=== PATIENT | male | born 1940 | race Caucasian/White ===

== ENCOUNTER 2018-01-12 17:28 | Observation (INO) | payer MEDICARE ==
[2018-01-11 23:35] VITALS: BP 130/59
[~2018-01-12] VITALS: Ht 175.3 cm; Wt 103.6 kg
[2018-01-12] MEDS: CEFTRIAXONE SOD 1 GM VIAL IV SCH (14:00)
--- OUTSIDE RECORDS SUMMARY | 2018-01-12 17:31 | XMS REPORT | Clinical Summary ---
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 Disp. Refills Start End Date Status Date hydroCHLOROthiazide Take 25 mg by mouth Active (HYDRODIURIL) 25 MG daily. tablet vit B comp Take 1 tablet by mouth Active no.5-avuss-Y-biotin daily. 5000 MCG (NEPHRO-OBBBI RX) 1-60-300 mg-mg-mcg tablet digOXIN (LANOXIN) 125 mcg Take 125 mcg by mouth Active tablet daily. tamsulosin (FLOMAX) 0.4 Take 0.4 mg by mouth Active mg capsule,extended daily. release 24hr aspirin (ECOTRIN) 81 MG Take 81 mg by mouth Active enteric coated tablet daily. folic acid (FOLVITE) 400 Take 400 mcg by mouth Active MCG tablet daily. metoprolol tartrate Take 12.5 mg by mouth Active (LOPRESSOR) 25 mg tablet daily. cholecalciferol, vitamin Take 2,000 Units by mouth Active D3, (VITAMIN D3) 2,000 daily. unit capsule capsule atorvastatin (LIPITOR) 10 Take 10 mg by mouth Active MG tablet daily. allopurinol (ZYLOPRIM) Take 300 mg by mouth Active 300 MG tablet daily. irbesartan (AVAPRO) 300 Take 300 mg by mouth Active MG tablet daily. nystatin (MYCOSTATIN) Take 100,000 Units by Active 100,000 unit/mL mouth. Swish in mouth suspension prednisoLONE sodium Administer 1 drop to both Active phosphate 1 % ophthalmic eyes 2 (two) times a day. solution cetirizine (ZyrTEC) 5 MG Take 5 mg by mouth daily. Active tablet cefTRIAXone (ROCEPHIN) 1 Infuse 1 g into a venous 01/14/20 02/13/20 Active gram in 50 mL Add-Montverde catheter daily for 30 18 18 days. sodium chloride 0.9% Infuse 50 mL/hr into a 100 mL 01/13/20 02/12/20 Active solution venous catheter 18 18 continuously for 30 days. warfarin (COUMADIN) 5 MG Take 5 mg by mouth daily. 01/13/20 Discontin tablet Take 1 tablet (5mg) by 18 ued mouth daily for 30 days. 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) after 01/11/2017 Social History Tobacco Use Types Packs/Day Years Used Date Former Smoker Quit: 01/22/1970 Smokeless Tobacco: Never Used Alcohol Use Drinks/Week oz/Week Comments No Sex Assigned at Date Recorded Not on file Last Filed Vital Signs Vital Sign Reading Time Taken Blood Pressure 113/65 01/12/2018 3:00 PM CDT Pulse 62 01/12/2018 3:00 PM CDT Temperature 36.3 C (97.3 F) 01/12/2018 3:00 PM CDT Respiratory Rate 18 01/12/2018 3:00 PM CDT Oxygen Saturation 95% 01/12/2018 3:00 PM CDT Inhaled Oxygen - - Concentration Weight 103 kg (226 lb) 01/12/2018 5:00 AM CDT Height 175.3 cm (5' 9") 01/12/2018 5:00 AM CDT Body Mass Index 33.37 01/12/2018 5:00 AM CDT Plan of Treatment Not on file Results * Urinalysis screen and microscopy, with reflex to culture (01/12/2018 12:31 PM) Component Value Ref Range Specimen site Clean catch Color, UA Red Appearance, UA Clear Specific gravity, UA 1.004 1.001 - 1.035 pH, UA 6.0 5.0 - 8.5 Protein, UA Negative Negative Glucose, UA Negative Negative Ketones, UA Negative Negative Bilirubin, UA Negative Negative Blood, UA Large (A) Negative Nitrite, UA Negative Negative Urobilinogen, UA Negative <2.0 Leukocyte esterase, UA Negative Negative WBC, UA 54 (H) 0 - 1 /HPF RBC, UA >200 (H) 0 - 5 /HPF Bacteria, UA None seen None seen Yeast, UA None seen Yeast with pseudohyphae, None seen UA Specimen Performing Laboratory Urine [facility] [address] [place] [address] * Smear review (01/12/2018 7:07 AM) Component Value Ref Range Platelet slide review Kacey adequate Specimen Performing Laboratory [facility] [address] [place] [address] * Estimated GFR (01/12/2018 7:07 AM) Component Value Ref Range GFR Non Af Amer 45 (A) mL/min/1.73 m2 GFR Af Amer 55 (A) mL/min/1.73 m2 Comment: Chronic kidney disease: <60 mL/min/1.73m2 Kidney failure: <15 mL/min/1.73m2 The estimated GFR is calculated from the IDMS-traceable Modification of Diet in Renal Disease Equation. The accuracy of the calculation is poor when the creatinine is normal. Calculated values >90 mL/min/1.73m2 are not reported. This equation has not been validated in children (<18 years), women, the elderly (>70 years), or ethnic groups other than Caucasians and Americans. Specimen Performing Laboratory Plasma specimen [facility] [address] [place] [address] * Prothrombin time with INR (01/12/2018 7:07 AM) Component Value Ref Range Prothrombin time 15.3 (H) 12.0 - 15.0 sec INR 1.19 (H) 0.92 - 1.12 Comment: For patients on anticoagulant therapy, reference ranges below: Indication: INR Value Treatment of Venous Thrombosis, 2.0-3.0 pulmonary emboli, or prophylaxis of a venous thrombosis, or systemic emboli. High dose, high risk patients 3.0-4.5 with mechanical valves. NOTE: INR values over 3.0 are sometimes associated with gastrointestinal hemorrhage, especially values over 4.0. Specimen Performing Laboratory Blood [facility] [address] [place] [address] * CBC with platelet and differential (01/12/2018 7:07 AM) Component Value Ref Range WBC 14.7 (H) 4.2 - 11.0 k/uL RBC 3.16 (L) 4.04 - 5.86 m/uL HGB 10.1 (L) 13.0 - 17.3 g/dL HCT 31.5 (L) 34.0 - 45.0 % MCV 99.7 (H) 80.0 - 98.0 fL MCH 32.0 27.0 - 34.0 pg MCHC 32.1 31.5 - 36.5 g/dL RDW - SD 58.7 (H) 37.0 - 51.0 fL MPV 12.2 (H) 7.4 - 10.4 fL Platelet count 138 (L) 150 - 400 k/uL Nucleated RBC 0.30 /100 WBC Neutrophils 76.1 (H) 36.0 - 66.0 % Lymphocytes 13.3 (L) 24.0 - 44.0 % Monocytes 8.7 (H) 0.0 - 6.0 % Eosinophils 0.6 0.0 - 6.0 % Basophils 0.3 0.0 - 1.2 % Immature granulocytes 0.8 0.0 - 1.0 % Specimen Performing Laboratory Blood [facility] [address] [place] [address] * Basic metabolic panel (01/12/2018 7:07 AM) Component Value Ref Range Sodium 139 135 - 150 mEq/L Potassium 4.6 3.5 - 5.0 mEq/L Chloride 106 100 - 109 mEq/L CO2 24 24 - 32 mmol/L Anion gap 9 7 - 15 mEq/L Comment: Starting from December , anion gap calculation no longer incorporates potassium. Please note the change. BUN 38 (H) 7 - 18 mg/dL Creatinine 1.5 0.8 - 1.5 mg/dL Glucose 94 65 - 100 mg/dL Calcium 8.0 (L) 8.6 - 10.7 mg/dL Specimen Performing Laboratory Plasma specimen [facility] [address] [place] [address] after 01/11/2017 Insurance Payer Benefit Subscriber ID Type Phone Address Plan / Group [employer] CIGNA xxxxxxxxxxx HMO [employer] [place] [address]
[2018-01-12 17:32] VITALS: BP 151/65
[2018-01-12 18:13] VITALS: BP 151/65
[2018-01-12] MEDS ORDERED: ACETAMINOPHEN/CODEINE 300MG - 30MG TAB PO PRN (19:45)
[2018-01-12 20:00] VITALS: BP 136/63
[2018-01-12] MEDS ORDERED: DEXTROSE 5%/0.45% SOD CHL 1,000 ML IV SCH (20:00)
[2018-01-12] MEDS: DEXTROSE 5%/0.45% SOD CHL 1,000 ML IV SCH (21:03)
[2018-01-13 04:25] VITALS: BP 133/62
[2018-01-13 07:51] VITALS: BP 134/61
[2018-01-13] MEDS ORDERED: KETOROLAC TROMETHAMINE 0.5% OP SOLN 3 ML BTL OP PRN (10:00)
[2018-01-13] MEDS: DEXTROSE 5%/0.45% SOD CHL 1,000 ML IV SCH ×2 (10:33→23:38)
[2018-01-13 10:34] LABS: BASOPHILS # (AUTO) 0.1 (0.0-0.1); BASOPHILS % 0.7 % (0.0-1.0); EOSINOPHILS # (AUTO) 0.4 (0.0-0.4); EOSINOPHILS % 2.9 % (0.0-6.0); HEMATOCRIT 32.6 % (38.2-49.6); HEMOGLOBIN 10.7 g/dL (14.0-18.0); LYMPHOCYTES # (AUTO) 2.7 (1.0-3.2); LYMPHOCYTES % 20.1 % (18.0-39.1); MEAN CORPUSCULAR HEMOGLOBIN 32.2 pg (28-32); MEAN CORPUSCULAR HGB CONC 32.8 g/dL (31-35); MEAN CORPUSCULAR VOLUME 98.2 fL (81-99); MONOCYTES % 7.7 % (4.4-11.3); NEUTROPHILS % 67.5 % (38.7-80.0); PLATELET COUNT 168 x10e3/uL (140-360); RED BLOOD COUNT 3.32 x10e6/uL (4.3-5.7); RED CELL DISTRIBUTION WIDTH 16.4 % (11.7-14.4)
[2018-01-13 12:00] VITALS: BP 125/57
[2018-01-13] MEDS: CEFTRIAXONE SOD 1 GM VIAL IV SCH (13:10)
[2018-01-13 15:59] VITALS: BP 136/63
[2018-01-13] MEDS: PREDNISOLONE ACETATE 1% OPTH SUSP 5 ML BTL OP SCH (17:00)
[2018-01-13 20:00] VITALS: BP 147/65
[2018-01-13] MEDS ORDERED: TAMSULOSIN HCL 0.4 MG CAP PO SCH (21:00)
[2018-01-13] MEDS ORDERED: ATORVASTATIN 10 MG TAB PO SCH (21:00)
[2018-01-13] MEDS ORDERED: METOPROLOL TARTRATE 25 MG TAB PO SCH (21:00)
[2018-01-13 23:46] VITALS: BP 147/65
[2018-01-14] VITALS: BP 140/65
[2018-01-14 04:00] VITALS: BP 149/69
[2018-01-14 07:21] LABS: BASOPHILS # (AUTO) 0.1 (0.0-0.1); BASOPHILS % 0.6 % (0.0-1.0); EOSINOPHILS # (AUTO) 0.3 (0.0-0.4); EOSINOPHILS % 3.1 % (0.0-6.0); HEMOGLOBIN 9.9 g/dL (14.0-18.0); LYMPHOCYTES # (AUTO) 2.1 (1.0-3.2); LYMPHOCYTES % 18.5 % (18.0-39.1); MEAN CORPUSCULAR HEMOGLOBIN 32.6 pg (28-32); MEAN CORPUSCULAR HGB CONC 34.1 g/dL (31-35); MEAN CORPUSCULAR VOLUME 95.4 fL (81-99); MONOCYTES # (AUTO) 0.8 (0.2-0.8); MONOCYTES % 6.9 % (4.4-11.3); NEUTROPHILS # (AUTO) 7.7 (2.1-6.9); NEUTROPHILS % 69.6 % (38.7-80.0); PLATELET COUNT 152 x10e3/uL (140-360); RED BLOOD COUNT 3.04 x10e6/uL (4.3-5.7); RED CELL DISTRIBUTION WIDTH 16.3 % (11.7-14.4)
[2018-01-14 07:52] LABS: ANION GAP 11.2 mmol/L (8-16); CALCIUM 8.8 mg/dL (8.4-10.2); CREATININE, SERUM 1.21 mg/dL (0.72-1.25); MAGNESIUM 1.3 MG/DL (1.3-2.1); POTASSIUM 4.2 mmol/L (3.5-5.1)
[2018-01-14 08:00] VITALS: BP 172/77
[2018-01-14 08:30] VITALS: BP 172/77
[2018-01-14] MEDS: PREDNISOLONE ACETATE 1% OPTH SUSP 5 ML BTL OP SCH (09:00)
[2018-01-14] MEDS ORDERED: ALLOPURINOL 300 MG TAB PO SCH (09:00)
[2018-01-14] MEDS ORDERED: LORATADINE 10 MG TAB PO SCH (09:00)
[2018-01-14] MEDS ORDERED: DIGOXIN 0.125 MG TAB PO SCH (09:00)
[2018-01-14] MEDS ORDERED: IRBESARTAN 150 MG TAB PO SCH (09:00)
[2018-01-14] MEDS ORDERED: DOCUSATE SODIUM 100 MG CAP PO SCH (09:00)
[2018-01-14] MEDS ORDERED: HYDROCHLOROTHIAZIDE 25 MG TAB PO SCH (09:00)
[2018-01-14] MEDS ORDERED: FOLIC ACID 1 MG TAB PO SCH (09:00)
[2018-01-14] MEDS ORDERED: CHOLECALCIFEROL 1,000 UNIT TAB PO SCH (09:00)
[2018-01-14 12:00] VITALS: BP 129/60
[2018-01-14] MEDS: CEFTRIAXONE SOD 1 GM VIAL IV SCH (13:06)
[2018-01-14] MEDS: DEXTROSE 5%/0.45% SOD CHL 1,000 ML IV SCH (13:06)
[2018-01-14] MEDS ORDERED: TAMSULOSIN HCL 0.4 MG CAP PO SCH (21:00)
== END 2018-01-14 14:44 | disposition home or self-care (01) ==
LOC: INTOOBSV 17:28 → MED/SURG3 17:28
PROVIDERS: ADMIT Urology; ATTEND Urology
DX: N99.820 Postprocedural hemorrhage of a genitourinary system organ or structure following a genitourinary system procedure (principal); R31.9 Hematuria, unspecified; C67.9 Malignant neoplasm of bladder, unspecified; D72.829 Elevated white blood cell count, unspecified; I10 Essential (primary) hypertension; N40.0 Benign prostatic hyperplasia without lower urinary tract symptoms; E78.5 Hyperlipidemia, unspecified; I48.91 Unspecified atrial fibrillation; Z79.01 Long term (current) use of anticoagulants; I25.10 Atherosclerotic heart disease of native coronary artery without angina pectoris; Z95.1 Presence of aortocoronary bypass graft
CPT/HCPCS: 36415 ×2; 80048; 83735; 85025 ×2; 96361; G0378 ×3; J0696 ×2

== ENCOUNTER 2018-04-18 06:41 | Observation (INO) | payer MEDICARE ==
[2018-04-17 10:53] LABS: BASOPHILS # (AUTO) 0.1 (0.0-0.1); BASOPHILS % 0.7 % (0.0-1.0); EOSINOPHILS # (AUTO) 0.2 (0.0-0.4); EOSINOPHILS % 2.4 % (0.0-6.0); LYMPHOCYTES # (AUTO) 2.5 (1.0-3.2); LYMPHOCYTES % 25.5 % (18.0-39.1); MEAN CORPUSCULAR HEMOGLOBIN 27.2 pg (28-32); MEAN CORPUSCULAR HGB CONC 31.4 g/dL (31-35); MEAN CORPUSCULAR VOLUME 86.4 fL (81-99); MONOCYTES # (AUTO) 0.8 (0.2-0.8); MONOCYTES % 8.6 % (4.4-11.3); NEUTROPHILS # (AUTO) 6.1 (2.1-6.9); NEUTROPHILS % 62.1 % (38.7-80.0); PLATELET COUNT 214 x10e3/uL (140-360); RED BLOOD COUNT 4.05 x10e6/uL (4.3-5.7)
--- NOTE | 2018-04-17 11:05 | Diagnostic Imaging Report ---
PROCEDURE: Frontal and lateral views of the chest. COMPARISON: None. INDICATIONS: PREOPERATIVE CHEST XRAY FOR BLADDER SURGERY FINDINGS: Lines/tubes: None. Lungs: The lungs are well inflated and clear. There is no evidence of pneumonia or pulmonary edema. Pleura: There is no pleural effusion or pneumothorax. Heart and mediastinum: Mild cardiomegaly. Status post CABG. Aortic and coronary atherosclerotic calcifications. Bones: No acute bony abnormality. Status post median sternotomy. IMPRESSION: Mild cardiomegaly and post surgical changes without evidence of pulmonary edema. Clear lungs. Dictated by: LUCIANO BLANCAS M.D. on 04/17/2018 at 11:11 Electronically approved by: LUCIANO BLANCAS M.D. on 04/17/2018 at 11:11
[2018-04-17 11:08] LABS: ANION GAP 14.7 mmol/L (8-16); CALCIUM 9.6 mg/dL (8.4-10.2); CREATININE, SERUM 1.55 mg/dL (0.72-1.25); POTASSIUM 4.7 mmol/L (3.5-5.1)
[~2018-04-18] VITALS: Ht 175.3 cm; Wt 101.6 kg
[2018-04-18] VITALS (7 sets, daily range): BP systolic 131–155; BP diastolic 56–65
[~2018-04-18 06:41] MED LIST: ALLOPURINOL300 MG PO; ASPIR 8181 MG PO; ATORVASTATIN CA10 MG PO; BIOTIN2500 MCG PO; DIGOXIN125 MCG PO; FLOMAX0.4 MG PO; FOLIC ACID1 MG PO; HYDROCHLOROTHIA25 MG PO; IRBESARTAN150 MG PO; METOPROLOL TART25 MG PO; NYSTATIN100000 UNI; TRIAMCINOLONE A15 G4 TP; TURMERIC PO; VIT D3 PO; WARFARIN SODIU2.5 MG PO; WARFARIN SODIUM1 MG PO; ZYRTEC10 M3 PO
[2018-04-18] MEDS ORDERED: CEFTRIAXONE SOD 1 GM VIAL ONE (07:32)
[2018-04-18 08:06] LABS: INR 1.25; PARTIAL THROMBOPLASTIN TIME 28.1 seconds (23.8-35.5); PROTHROMBIN TIME 14.8 seconds (11.9-14.5)
[2018-04-18] MEDS ORDERED: ACETAMINOPHEN/CODEINE 300MG - 30MG TAB PO PRN (10:15)
[2018-04-18] MEDS ORDERED: WARFARIN SOD 1 MG TAB PO SCH (10:45)
[2018-04-18] MEDS ORDERED: TRIAMCINOLONE ACETONIDE 15 GM TP SCH (10:45)
[2018-04-18] MEDS ORDERED: DEXTROSE 5%/0.45% SOD CHL 1,000 ML IV ONE (11:00)
[2018-04-18] MEDS: TRIMETHOPRIM/SULFAMETHOXAZOLE 160-800 MG TAB PO SCH ×2 (11:15→20:34)
[2018-04-18] MEDS ORDERED: TRIAMCINOLONE 0.025% TP PRN (11:30)
[2018-04-18] MEDS ORDERED: FENTANYL CITRATE/PF 100MCG/2 ML INJ ONE (15:00)
[2018-04-18] MEDS: TURMERIC 400 MG PO SCH (16:23)
[2018-04-18] MEDS ORDERED: WARFARIN SOD 5 MG TAB PO SCH (17:00)
[2018-04-18] MEDS ORDERED: SEVOFLURANE INHAL SOLN 250 ML PEN BTL ONE (17:55)
[2018-04-18] MEDS ORDERED: DEXAMETHASONE SOD PHOS INJ 4 MG/ML VIAL ONE (17:55)
[2018-04-18] MEDS ORDERED: EPHEDRINE SULFATE INJ 50 MG/10 ML SYR ONE (17:55)
[2018-04-18] MEDS ORDERED: PROPOFOL IV EMULSION 10 MG/ML 20 ML VIAL ONE (17:55)
[2018-04-18] MEDS ORDERED: LIDOCAINE HCL 2% LOCAL INJ 5 ML SDV VIAL INJ ONE (17:55)
[2018-04-18] MEDS ORDERED: ONDANSETRON HCL INJ 2 MG/ML VIAL ONE (17:55)
[2018-04-18] MEDS ORDERED: GLYCOPYRROLATE INJ 1MG/ 5 ML SYR ONE (17:55)
[2018-04-18] MEDS ORDERED: CHOLECALCIFEROL 2000 MG PO SCH (21:00)
[2018-04-18] MEDS ORDERED: ATORVASTATIN 10 MG TAB PO SCH (21:00)
[2018-04-18] MEDS ORDERED: METOPROLOL TARTRATE 25 MG TAB PO SCH (21:00)
[2018-04-18] MEDS ORDERED: CHOLECALCIFEROL 1,000 UNIT TAB PO SCH (21:00)
[2018-04-19 05:05] VITALS: BP 121/58
[2018-04-19 08:13] VITALS: BP 158/70
[2018-04-19] MEDS ORDERED: BIOTIN PO SCH (09:00)
[2018-04-19] MEDS ORDERED: LORATADINE 10 MG TAB PO SCH (09:00)
[2018-04-19] MEDS ORDERED: WARFARIN SOD 2.5 MG TAB PO SCH (09:00)
[2018-04-19] MEDS ORDERED: TAMSULOSIN HCL 0.4 MG CAP PO SCH (09:00)
[2018-04-19] MEDS ORDERED: ASPIRIN 81 MG CHEW TAB PO SCH (09:00)
[2018-04-19] MEDS ORDERED: DIGOXIN 0.125 MG TAB PO SCH (09:00)
[2018-04-19] MEDS ORDERED: ALLOPURINOL 300 MG TAB PO SCH (09:00)
[2018-04-19] MEDS ORDERED: HYDROCHLOROTHIAZIDE 25 MG TAB PO SCH (09:00)
[2018-04-19] MEDS ORDERED: FOLIC ACID 1 MG TAB PO SCH (09:00)
[2018-04-19] MEDS ORDERED: IRBESARTAN 150 MG TAB PO SCH (09:00)
[2018-04-19 09:03] VITALS: BP 158/70
[2018-04-19] MEDS: TRIMETHOPRIM/SULFAMETHOXAZOLE 160-800 MG TAB PO SCH (09:54)
[2018-04-19] MEDS: TURMERIC 400 MG PO SCH (09:54)
--- NOTE | 2018-04-19 14:27 | Operative Report ---
DATE OF PROCEDURE: April 18, 2018 PREOPERATIVE DIAGNOSIS: Recurrent transitional cell carcinoma of the bladder. POSTOPERATIVE DIAGNOSIS: Recurrent transitional cell carcinoma of the bladder. OPERATIVE PROCEDURES PERFORMED 1. Cholecystostomy. 2. Transurethral resection of multiple bladder tumors. ANESTHESIA: General aesthesia. ESTIMATED BLOOD LOSS: Minimal. INDICATIONS: Mr. Paolo Aggarwal is a 77-year-old gentleman with a long history of recurrent TCC of the bladder. He now presents for definitive surgical management of this problem. PROCEDURE IN DETAIL: Patient brought into the operating room, placed in supine position. After initiation of general anesthesia, he was placed in the dorsal lithotomy position and prepped and draped in the usual sterile fashion. Cystourethroscopy was performed using a 21-Uzbek cystoscope. The anterior and posterior urethra were noted to be normal. The prostate revealed evidence of trilobar hyperplasia with moderate elevation of the median bar, but a short prostatic fossa. The bladder was entered without difficulty. Upon entrance into the bladder, the ureteral orifices were in their normal anatomical position. The left ureteral orifice was completely clear. The right ureteral orifice had what appeared to be transitional cell papillary TCC lesions around it. These were all also fulgurated with the Bugbee electrode. The bladder mucosa was studded with small papillary lesions. Most of them appeared to be low-grade and noninvasive. Most of these were plucked off using the cold cup bladder biopsy forceps. The residual tumors were fulgurated using the Bugbee electrode. All of the bladder tumors were removed and irrigated free and sent to pathology for microscopic analysis. There were no grossly visualized tumors noted at the conclusion of the case. The bladder was then drained in its entirety and the cystoscope and the sheath were removed. The patient was returned to supine position and anesthesia was reversed. He was transferred to a bed and taken to the postanesthesia care unit in good condition. Of note, the needle and instrument count were correct at the conclusion of the case. Job#: [id number] NOEL
[2018-04-24] MEDS ORDERED: WARFARIN SOD 1 MG TAB PO SCH (17:00)
== END 2018-04-19 10:27 | disposition home or self-care (01) ==
LOC: OR 06:41 → PACU V 09:56 → IMCU 10:30
PROVIDERS: ADMIT Urology; ATTEND Urology
DX: C67.6 Malignant neoplasm of ureteric orifice (principal); I10 Essential (primary) hypertension; I25.10 Atherosclerotic heart disease of native coronary artery without angina pectoris; I48.91 Unspecified atrial fibrillation; K57.90 Diverticulosis of intestine, part unspecified, without perforation or abscess without bleeding
CPT/HCPCS: 36415 ×2; 52234; 71046; 80048; 85025; 85610; 85730; 88305; 93005; G0378 ×2; J0696; J1100; J2001; J2405; J3490

== ENCOUNTER 2019-04-10 06:37 | Inpatient (IN) | payer MEDICARE ==
[2019-04-08 14:36] LABS: BASOPHILS % 0.4 % (0.0-1.0); EOSINOPHILS # (AUTO) 0.1 (0.0-0.4); HEMATOCRIT 38.5 % (38.2-49.6); HEMOGLOBIN 12.6 g/dL (14.0-18.0); LYMPHOCYTES # (AUTO) 1.6 (1.0-3.2); LYMPHOCYTES % 17.3 % (18.0-39.1); MEAN CORPUSCULAR HEMOGLOBIN 31.3 pg (28-32); MEAN CORPUSCULAR HGB CONC 32.7 g/dL (31-35); MEAN CORPUSCULAR VOLUME 95.5 fL (81-99); MONOCYTES # (AUTO) 0.7 (0.2-0.8); MONOCYTES % 7.5 % (4.4-11.3); NEUTROPHILS # (AUTO) 6.9 (2.1-6.9); NEUTROPHILS % 73.2 % (38.7-80.0); PLATELET COUNT 165 x10e3/uL (140-360); RED BLOOD COUNT 4.03 x10e6/uL (4.3-5.7); RED CELL DISTRIBUTION WIDTH 22.7 % (11.7-14.4)
[2019-04-08 14:51] LABS: CALCIUM 9.9 mg/dL (8.4-10.2); CREATININE, SERUM 1.48 mg/dL (0.72-1.25)
--- NOTE | 2019-04-08 15:24 | Diagnostic Imaging Report ---
EXAMINATION: CHEST 2 VIEWS INDICATION: Pre-operative COMPARISON: Chest radiograph 04/17/2018 FINDINGS: LINES/TUBES:Sternotomy wires intact. LUNGS:The lungs are well-inflated. No focal consolidation or pulmonary edema. PLEURA:No pleural effusion or pneumothorax. MEDIASTINUM:Postoperative changes status post CABG. Atherosclerotic calcifications of the thoracic aorta. BONES/SOFT TISSUES:No acute osseous injury. Mild degenerative changes of the thoracic spine. ABDOMEN:No free air under the diaphragm. IMPRESSION: No focal pneumonia or pulmonary edema. Signed by: Dejuan Tracey MD on 04/08/2019 3:21 PM
[2019-04-08 18:26] LABS: ANISOCYTOSIS SLIG; HOWELL-JOLLY BODIES FEW; HYPOCHROMASIA SLIGHT; PLATELET ESTIMATE ADEQUATE; PLATELET MORPHOLOGY COMMENT FEW LARGE; POIKILOCYTOSIS SLIG; RBC MORPHOLOGY COMMENT NORMAL
[2019-04-10] VITALS (10 sets, daily range): BP systolic 81–122; BP diastolic 33–51
[~2019-04-10] VITALS: Ht 175.3 cm; Wt 86.4 kg
[~2019-04-10 06:37] MED LIST changes: +OLMESARTAN
--- OUTSIDE RECORDS SUMMARY | 2019-04-10 06:43 | XMS REPORT | Clinical Summary ---
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 tablet Active vit B comp Take 1 tablet 0 no.3-imbcu-N-biotin by mouth (NEPHRO-BOBBI RX) 1-60-300 daily. 5000 mg-mg-mcg tablet MCG Active digOXIN (LANOXIN) 125 mcg Take 125 mcg 0 tablet by mouth daily. Active tamsulosin (FLOMAX) 0.4 Take 0.4 mg 0 mg capsule,extended by mouth release 24hr daily. Active aspirin (ECOTRIN) 81 MG Take 81 mg by 0 enteric coated tablet mouth daily. Active folic acid (FOLVITE) 400 Take 400 mcg 0 MCG tablet by mouth daily. Active metoprolol tartrate Take 12.5 mg 0 (LOPRESSOR) 25 mg tablet by mouth daily. Active cholecalciferol, vitamin Take 2,000 0 D3, (VITAMIN D3) 2,000 Units by unit capsule capsule mouth daily. Active atorvastatin (LIPITOR) 10 Take 10 mg by 0 MG tablet mouth daily. Active allopurinol (ZYLOPRIM) Take 300 mg 0 300 MG tablet by mouth daily. Active irbesartan (AVAPRO) 300 Take 300 mg 0 MG tablet by mouth daily. Active nystatin (MYCOSTATIN) Take 100,000 0 100,000 unit/mL Units by suspension mouth. Swish in mouth Active prednisoLONE sodium Administer 1 0 phosphate 1 % ophthalmic drop to both solution eyes 2 (two) times a day. Active cetirizine (ZyrTEC) 5 MG Take 5 mg by 0 tablet mouth daily. Active Problems Problem Noted Date Hematuria 01/12/2018 Social History Date Tobacco Use Types Packs/Day Years Used Quit: 01/22/1970 Former Smoker Smokeless Tobacco: Never Used Alcohol Use Drinks/Week oz/Week Comments No Sex Assigned at Date Recorded Not on file Industry Job Start Date Occupation Not on file Not on file Not on file Travel End Travel History Travel Start No recent travel history available. Last Filed Vital Signs Not on file Plan of Treatment Not on file Results Not on fileafter 04/09/2018 Insurance Type Payer Benefit Subscriber ID Effective Phone Address Plan / Dates Group HMO [employer]SPRING CIGNA xxxxxxxxxxx 2017-P [facility] Advance Directives Patient has advance care planning documents on file. For more information, pooja whiteside contact: Mike Branham [address] [place] [address]
[2019-04-10] MEDS ORDERED: CEFTRIAXONE SOD 1 GM/NS 50 ML 50 ML IV ONE (07:25)
[2019-04-10] MEDS ORDERED: IOPAMIDOL 610MG/1ML 300 MG/ML VIAL IV ONE (08:24)
[2019-04-10 08:29] LABS: INR 0.97; PROTHROMBIN TIME 13.4 seconds (11.9-14.5)
[2019-04-10 08:30] LABS: PARTIAL THROMBOPLASTIN TIME 32.5 seconds (23.8-35.5)
--- OUTSIDE RECORDS SUMMARY | 2019-04-10 10:55 | XMS REPORT | Clinical Summary ---
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 tablet Active vit B comp Take 1 tablet 0 no.1-ugruv-N-biotin by mouth (NEPHRO-BOBBI RX) 1-60-300 daily. 5000 [...] [employer] CIGNA xxxxxxxxxxx 2017-P [facility] Advance Directives Patient has advance care planning documents on file. For more information, pooja whiteside contact: Mike Branham [address] [place] [address]
--- NOTE | 2019-04-10 12:37 | NUR ---
Patient admitted to unit from PACU. Patient is post op TURBT. Patient has a sanchez with CBI in place. Urine noted to be very bright hematuria with some clots noted. Lung tolbert clear to auscultation. Bowel sounds hypoactive. Patient had a BM 2 days ago. No edema noted. Bilateral SCD's in place. Patient has a hx of Afib and stopped his coumadin 4 weeks ago. Left hand 20G IV in place. No c/o pain at this time.
[2019-04-10] MEDS: DEXTROSE 5%/0.45% SOD CHL 1,000 ML IV SCH ×3 (13:00→22:00)
[2019-04-10] MEDS ORDERED: ACETAMINOPHEN/CODEINE 300MG - 30MG TAB PO PRN (13:00)
--- NOTE | 2019-04-10 13:40 | NUR ---
Manual irrigation performed at this time due to increased amount of blood clots. Patient informed he feels better and urine flowing in gravity bag
--- NOTE | 2019-04-10 13:50 | NUR ---
Nurse went to check on patient and patient c/o being dizzy and blurred vision. BP checked and noted at 59/37, 62. Patient placed in trendelenburg and increased fluids at this time.
--- NOTE | 2019-04-10 14:00 | NUR ---
Blood pressure rechecked and noted at 74/37, 60. Patient remains in trendelenburg. Patient states his vision is getting better. Family remains at bedside
--- NOTE | 2019-04-10 14:05 | NUR ---
BP rechecked and 85/43, 59. Call placed to Dr. Navarro to inform of change of condition. MD stated "This is his 16th surgery and he usually has a dramatic event like this and has to go to ICU. He will bounce back." Informed MD that his BP was increasing and that I felt comfortable taking care of him at this time. WIll continue to monitor and will let dr. navarro know about how he is doing
[2019-04-10 14:29] LABS: BASOPHILS % 0.3 % (0.0-1.0); EOSINOPHILS % 0.1 % (0.0-6.0); HEMATOCRIT 31.2 % (38.2-49.6); HEMOGLOBIN 10.1 g/dL (14.0-18.0); LYMPHOCYTES # (AUTO) 0.8 (1.0-3.2); LYMPHOCYTES % 6.7 % (18.0-39.1); MEAN CORPUSCULAR HEMOGLOBIN 31.5 pg (28-32); MEAN CORPUSCULAR HGB CONC 32.4 g/dL (31-35); MEAN CORPUSCULAR VOLUME 97.2 fL (81-99); MONOCYTES # (AUTO) 0.3 (0.2-0.8); MONOCYTES % 2.2 % (4.4-11.3); NEUTROPHILS # (AUTO) 10.3 (2.1-6.9); PLATELET COUNT 163 x10e3/uL (140-360); RED BLOOD COUNT 3.21 x10e6/uL (4.3-5.7); RED CELL DISTRIBUTION WIDTH 22.2 % (11.7-14.4)
--- NOTE | 2019-04-10 15:07 | NUR ---
BP noted at 98/45. Patient able to sit up and tolerate his liquids without feeling dizzy. Nurse house manager in room at this time.
[2019-04-10] MEDS: TRIMETHOPRIM/SULFAMETHOXAZOLE 160-800 MG TAB PO SCH ×2 (15:14→22:00)
--- NOTE | 2019-04-10 15:15 | NUR ---
Blood pressure noted at 51/42 after sitting up taking medications. Patient lowered back down to trendelenburg.
--- NOTE | 2019-04-10 15:41 | NUR ---
Blood pressure noted at 89/57, 80, 100% on O2
--- NOTE | 2019-04-10 15:58 | NUR ---
Vitals noted at 92/48. Patient continues to remain dizzy when sat up. Patient placed back in trendelenburg.
[2019-04-10] MEDS ORDERED: ONDANSETRON HCL INJ 2MG/ML 2ML 2 MG/ML VIAL ONE (17:36)
[2019-04-10] MEDS ORDERED: PROPOFOL IV EMULSION 10 MG/ML 20 ML VIAL ONE (17:36)
[2019-04-10] MEDS ORDERED: NEOSTIGMINE 5 MG/5ML SYR ONE (17:36)
[2019-04-10] MEDS ORDERED: SEVOFLURANE INHAL SOLN 250 ML PEN BTL ONE (17:36)
[2019-04-10] MEDS ORDERED: LIDOCAINE HCL 2% LOCAL INJ 5 ML SDV VIAL INJ ONE (17:36)
[2019-04-10] MEDS ORDERED: GLYCOPYRROLATE INJ 1MG/ 5 ML SYR ONE (17:36)
[2019-04-10] MEDS ORDERED: EPHEDRINE SULFATE INJ 50 MG/10 ML SYR ONE (17:36)
[2019-04-10] MEDS ORDERED: DEXAMETHASONE SOD PHOS INJ 4 MG/ML VIAL ONE (17:36)
[2019-04-10] MEDS ORDERED: ROCURONIUM BROMIDE 10 MG/ML 5ML VIAL ONE (17:36)
--- NOTE | 2019-04-10 18:37 | NUR ---
Call and left a message with dr. navarro and informed that patient would be transferring to icu
[2019-04-10] MEDS ORDERED: FENTANYL CITRATE/PF 100MCG/2 ML INJ ONE (18:57)
--- NOTE | 2019-04-10 19:14 | NUR ---
Report given to Fercho Plascencia in ICU. Patient transferred at this time in bed. Dr. Short returned call and aware
[2019-04-10 19:38] LABS: BASOPHILS % 0.1 % (0.0-1.0); HEMATOCRIT 27.9 % (38.2-49.6); HEMOGLOBIN 9.1 g/dL (14.0-18.0); LYMPHOCYTES # (AUTO) 0.6 (1.0-3.2); LYMPHOCYTES % 5.3 % (18.0-39.1); MEAN CORPUSCULAR HEMOGLOBIN 31.6 pg (28-32); MEAN CORPUSCULAR HGB CONC 32.6 g/dL (31-35); MEAN CORPUSCULAR VOLUME 96.9 fL (81-99); MONOCYTES # (AUTO) 0.3 (0.2-0.8); MONOCYTES % 2.5 % (4.4-11.3); NEUTROPHILS # (AUTO) 10.6 (2.1-6.9); NEUTROPHILS % 91.2 % (38.7-80.0); PLATELET COUNT 187 x10e3/uL (140-360); RED BLOOD COUNT 2.88 x10e6/uL (4.3-5.7); RED CELL DISTRIBUTION WIDTH 22.5 % (11.7-14.4)
--- NOTE | 2019-04-10 21:03 | NUR ---
Pt transfered from OBS to ICU. notified DR Short about the pt's Low BP 76/48, said to monitor the patient. Pt BP went up to 94/46. Pt denies any concerns at this time will continue to monitor
[2019-04-10] MEDS ORDERED: SODIUM CHLORIDE 0.9% 1000ML 1,000 ML ONE (21:36)
[2019-04-11] VITALS (24 sets, daily range): BP systolic 59–118; BP diastolic 33–58
[2019-04-11 05:04] LABS: BASOPHILS % 0.2 % (0.0-1.0); HEMATOCRIT 23.9 % (38.2-49.6); HEMOGLOBIN 7.7 g/dL (14.0-18.0); LYMPHOCYTES # (AUTO) 1.1 (1.0-3.2); LYMPHOCYTES % 7.7 % (18.0-39.1); MEAN CORPUSCULAR HEMOGLOBIN 31.2 pg (28-32); MEAN CORPUSCULAR HGB CONC 32.2 g/dL (31-35); MEAN CORPUSCULAR VOLUME 96.8 fL (81-99); NEUTROPHILS # (AUTO) 12.4 (2.1-6.9); PLATELET COUNT 194 x10e3/uL (140-360); RED BLOOD COUNT 2.47 x10e6/uL (4.3-5.7); RED CELL DISTRIBUTION WIDTH 22.3 % (11.7-14.4)
[2019-04-11 05:33] LABS: ALBUMIN 2.7 g/dL (3.5-5.0); ALBUMIN/GLOBULIN RATIO 1.1 (0.8-2.0); ANION GAP 16.2 mmol/L (8-16); CREATININE, SERUM 2.63 mg/dL (0.72-1.25); POTASSIUM 5.2 mmol/L (3.5-5.1)
[2019-04-11 05:42] LABS: CALCIUM 8.4 mg/dL (8.4-10.2)
[2019-04-11] MEDS ORDERED: SODIUM CHLORIDE 0.9% 250ML 250 ML IV NR (06:15)
--- NOTE | 2019-04-11 06:17 | NUR ---
sPOKE WITH dR. stacey Vega REGARDING NEW CONSULT, REVIEWED CURRENT VITAL SIGNS AND AM LABS. ORDERS RECEIVED TO TRANSFUSE 2 UNITS PRBC AND THAT HE WILL BE HERE TO SEE PATIENT SOON
[2019-04-11] MEDS ORDERED: DIGOXIN INJ 0.25 MG/ML 2 ML AMP IV NR (08:30)
[2019-04-11] MEDS ORDERED: TAMSULOSIN HCL 0.4 MG CAP PO SCH (09:00)
[2019-04-11] MEDS ORDERED: FOLIC ACID 1 MG TAB PO SCH (09:00)
[2019-04-11] MEDS ORDERED: DIGOXIN 0.125 MG TAB PO SCH (09:00)
--- NOTE | 2019-04-11 09:10 | Consultation ---
DATE OF CONSULTATION: Pulmonary Critical Care Consultation CHIEF COMPLAINT: Hypotension, worsening anemia, and atrial fibrillation. HISTORY OF PRESENT ILLNESS: The patient is an 78-year-old man. He has a history of prior CABG 7 years ago. He also has a history of atrial fibrillation. He was on anticoagulation up to 4 weeks ago when he stopped because of hematuria. The patient also has a history of transitional cell carcinoma of the bladder. He went for a cystoscopy with ablation of his tumors yesterday. He developed postoperative bleeding and required bladder irrigation. During the night, he had some further hypotension and required additional fluids. His hemoglobin also fell from 12.6 to 7.7. PAST SURGICAL HISTORY: 1. Status post coronary artery bypass grafting. 2. Status post cystoscopy with ablation of transitional cell carcinoma. PAST MEDICAL HISTORY: 1. Atrial fibrillation. 2. Chronic renal insufficiency. SOCIAL HISTORY: The patient is not a smoker. He is not a drinker. ALLERGIES: THE PATIENT IS ALLERGIC TO ADHESIVE TAPE. FAMILY HISTORY: Family history is noncontributory. REVIEW OF SYSTEMS: The patient is afebrile. The vital signs are stable. The patient denies any fevers. He has no headache. He is not complaining of neck pain. He has no chest pain. He has no cough or difficulty breathing. He has no abdominal pain. He has no leg swelling. PHYSICAL EXAMINATION: VITAL SIGNS: The patient is afebrile. The blood pressure is now 89/40, his heart rate is 110 to 115 with atrial fibrillation. HEENT: He has no facial swelling or erythema. Oropharynx is normal. LYMPHATIC: Shows no submandibular, cervical, or supraclavicular adenopathy. CARDIAC: Reveals an irregularly irregular rhythm with a normal S1 and S2. There are no murmurs or rubs heard. LUNGS: Auscultation of lungs reveals rhonchorous breath sounds bilaterally. There is no wheezing. ABDOMEN: Soft and nontender. There is no rebound or guarding. EXTREMITIES: Show no leg edema or calf tenderness. There is no cyanosis or clubbing. SKIN: Shows no rashes. NEUROLOGICAL: Shows no focal abnormalities. LABORATORY DATA: The white blood cell count is 14.7 and hemoglobin is 7.7. The platelet count is 194. Sodium is 131 and the carbon dioxide is 20 with no anion gap. The BUN to creatinine ratio is increased to 66/2.63. RADIOGRAPHIC DATA: Chest x-ray from the shows no acute disease. IMPRESSION: 1. Hypotension secondary to atrial fibrillation and acute blood loss. 2. Atrial fibrillation with rapid ventricular response. 3. Anemia secondary to acute on chronic blood loss. 4. Acute kidney injury. 5. Transitional cell carcinoma of the bladder. 6. Hyponatremia. PLAN: 1. Continue to monitor blood counts and transfuse if necessary. 2. Digoxin for rate control. 3. Echocardiogram, troponin, and EKG. 4. Cardiology consultation. 5. Continue to monitor renal function and urine output. 6. Hold any anti-platelet therapy or any anticoagulation for now. Homer Zapien MD [facility] /[id number]
[2019-04-11] MEDS: TRIMETHOPRIM/SULFAMETHOXAZOLE 160-800 MG TAB PO SCH ×2 (12:02→20:49)
[2019-04-11] MEDS ORDERED: SODIUM CHLORIDE 0.9% 100 ML ONE (12:48)
[2019-04-11] MEDS: FOLIC ACID 1 MG TAB PO SCH (13:00)
--- NOTE | 2019-04-11 13:41 | Consultation ---
DATE OF CONSULTATION: 04/11/2019 Cardiology Consultation REQUESTING PHYSICIAN: Baljeet Short M.D. REASON FOR CONSULTATION: Atrial fibrillation and hypotension. HISTORY OF PRESENT ILLNESS: This is an 78-year-old man with history of coronary artery disease status post CABG, atrial fibrillation, hypertension, and hyperlipidemia, who presents for cystoscopy and ablation of transitional cell carcinoma of the bladder. The patient developed postoperative bleeding and required initiation of continuous bladder irrigation. He became hypotensive yesterday evening and was admitted for further care. The patient denies any chest pain, shortness of breath, palpitations, edema, orthopnea, or PND. REVIEW OF SYSTEMS: Negative except as per HPI. PAST MEDICAL HISTORY: 1. Atrial fibrillation. 2. Coronary artery disease, status post three vessel CABG in 2011. 3. Hypertension. 4. Hyperlipidemia. 5. History of cancer, status post nephrectomy. PAST SURGICAL HISTORY: 1. CABG. 2. Nephrectomy. 3. Cholecystectomy. ALLERGIES: PLEASE SEE EMR. MEDICATIONS: Please see medication list. SOCIAL HISTORY: Quit smoking in 1969. Denies alcohol or illicit drugs. FAMILY HISTORY: Noncontributory to current illness. PHYSICAL EXAMINATION: VITAL SIGNS: Temperature 97.9 degrees, pulse 86, respiratory rate 21, blood pressure 89/30, and oxygen saturation 100% on 2 L nasal cannula. GENERAL: Elderly man, in no acute distress. Awake and alert. HEENT: Normocephalic, atraumatic. Pupils equal. No scleral icterus. NECK: Supple. No thyromegaly or cervical lymphadenopathy. Carotid bruits are noted bilaterally. LUNGS: Clear to auscultation bilaterally. No wheeze or crackles. CARDIOVASCULAR: Normal rate. Irregularly irregular. Normal S1, S2. No murmur. ABDOMEN: Soft, nontender. EXTREMITIES: No edema. NEUROLOGIC: Nonfocal exam. LABORATORY DATA: WBC 14.74, hemoglobin 7.7, hematocrit 23.9, platelets 194. Sodium 131, potassium 5.2, chloride 100, CO2 20, BUN 66, creatinine 2.63. Troponin 0.084. Chest x-ray, no focal pneumonia or pulmonary edema. TELEMETRY: Atrial fibrillation with rapid ventricular response. IMPRESSION: 1. Hypotension secondary to acute blood loss anemia. 2. Acute blood loss anemia, suspected secondary to postoperative bleeding. 3. Atrial fibrillation with rapid ventricular response. 4. Acute kidney injury. 5. Coronary artery disease, status post 3-vessel coronary artery bypass grafting. 6. Hypertension, currently hypotensive. 7. Hyperlipidemia. 8. Transitional cell carcinoma of the bladder. RECOMMENDATIONS: Follow hemoglobin and hematocrit closely, transfuse as needed for hemoglobin greater than 7. Monitor the patient closely on telemetry. Digoxin for rate control. We would hold off on beta-blockade at this time due to hypotension. Continue supportive care with fluids. Echocardiogram has been ordered. Given carotid bruits, carotid Doppler has been ordered as well. Thank you for this consult. We will continue to follow. Candi Jo MD [facility] /[id number]
[2019-04-11 18:29] LABS: BASOPHILS # (AUTO) 0.1 (0.0-0.1); BASOPHILS % 0.3 % (0.0-1.0); EOSINOPHILS % 0.2 % (0.0-6.0); HEMATOCRIT 22.7 % (38.2-49.6); HEMOGLOBIN 7.6 g/dL (14.0-18.0); LYMPHOCYTES % 11.9 % (18.0-39.1); MEAN CORPUSCULAR HEMOGLOBIN 31.4 pg (28-32); MEAN CORPUSCULAR HGB CONC 33.5 g/dL (31-35); MEAN CORPUSCULAR VOLUME 93.8 fL (81-99); MONOCYTES # (AUTO) 1.2 (0.2-0.8); NEUTROPHILS # (AUTO) 13.1 (2.1-6.9); NEUTROPHILS % 79.5 % (38.7-80.0); PLATELET COUNT 168 x10e3/uL (140-360); RED BLOOD COUNT 2.42 x10e6/uL (4.3-5.7); RED CELL DISTRIBUTION WIDTH 22.4 % (11.7-14.4)
--- NOTE | 2019-04-11 18:50 | NUR ---
rec'd order from Dr. Zapien to infuse 500cc bolus over 2 hrs for low Hgb and low DBP. will continue to monitor
[2019-04-11] MEDS: DEXTROSE 5%/0.45% SOD CHL 1,000 ML IV SCH (19:19)
[2019-04-11] MEDS: METOPROLOL TARTRATE 25 MG TAB PO SCH (20:50)
[2019-04-11] MEDS: TAMSULOSIN HCL 0.4 MG CAP PO SCH (20:50)
[2019-04-12] VITALS (24 sets, daily range): BP systolic 66–129; BP diastolic 29–90
[2019-04-12] MEDS: ACETAMINOPHEN/CODEINE 300MG - 30MG TAB PO PRN ×2 (03:51→09:50)
[2019-04-12] MEDS: DEXTROSE 5%/0.45% SOD CHL 1,000 ML IV SCH ×2 (04:43→14:44)
[2019-04-12 05:50] LABS: BASOPHILS % 0.3 % (0.0-1.0); EOSINOPHILS # (AUTO) 0.1 (0.0-0.4); EOSINOPHILS % 0.9 % (0.0-6.0); LYMPHOCYTES # (AUTO) 2.3 (1.0-3.2); LYMPHOCYTES % 16.1 % (18.0-39.1); MEAN CORPUSCULAR HEMOGLOBIN 30.9 pg (28-32); MEAN CORPUSCULAR HGB CONC 33.7 g/dL (31-35); MEAN CORPUSCULAR VOLUME 91.8 fL (81-99); MONOCYTES # (AUTO) 1.2 (0.2-0.8); MONOCYTES % 8.3 % (4.4-11.3); NEUTROPHILS # (AUTO) 10.5 (2.1-6.9); NEUTROPHILS % 73.5 % (38.7-80.0); PLATELET COUNT 157 x10e3/uL (140-360); RED CELL DISTRIBUTION WIDTH 22.5 % (11.7-14.4)
[2019-04-12 06:11] LABS: HEMATOCRIT 20.2 % (38.2-49.6); HEMOGLOBIN 6.8 g/dL (14.0-18.0)
[2019-04-12 06:15] LABS: ALBUMIN 2.5 g/dL (3.5-5.0); ALBUMIN/GLOBULIN RATIO 1.2 (0.8-2.0); ANION GAP 14.7 mmol/L (8-16); CREATININE, SERUM 2.6 mg/dL (0.72-1.25); POTASSIUM 4.7 mmol/L (3.5-5.1)
[2019-04-12] MEDS ORDERED: SODIUM CHLORIDE 0.9% 250ML 250 ML IV ONE ×2 (06:45→20:45)
[2019-04-12 08:47] LABS: INR 1.08; PROTHROMBIN TIME 14.5 seconds (11.9-14.5)
[2019-04-12 08:48] LABS: PARTIAL THROMBOPLASTIN TIME 29.5 seconds (23.8-35.5)
[2019-04-12] MEDS: DIGOXIN 0.125 MG TAB PO SCH (08:55)
[2019-04-12] MEDS: FOLIC ACID 1 MG TAB PO SCH (08:55)
[2019-04-12] MEDS: TRIMETHOPRIM/SULFAMETHOXAZOLE 160-800 MG TAB PO SCH ×2 (08:55→20:58)
[2019-04-12] MEDS ORDERED: FUROSEMIDE INJ 10 MG/ML 2 ML VIAL IV ONE (09:00)
[2019-04-12 11:46] LABS: PLATELET ESTIMATE ADEQUATE; PLATELET MORPHOLOGY COMMENT NORMAL; RBC MORPHOLOGY COMMENT ABNORMAL
[2019-04-12 11:47] LABS: HYPOCHROMASIA MODERATE
[2019-04-12 11:48] LABS: ANISOCYTOSIS SLIGHT; POIKILOCYTOSIS SLIGHT
[2019-04-12 11:49] LABS: ROULEAU FEW
[2019-04-12] MEDS ORDERED: SODIUM CHLORIDE 0.9% 500ML 500 ML ONE (12:01)
--- NOTE | 2019-04-12 12:24 | Progress Note ---
DATE: SUBJECTIVE: The patient had some further hematuria. He required an additional unit of packed red blood cells this morning. He remains with some atrial fibrillation with a controlled rate. PHYSICAL EXAMINATION: VITAL SIGNS: The blood pressure is 106/42 and the pulse is 90 to 100 with atrial fibrillation. HEENT: Shows no facial swelling or erythema. LYMPHATIC: Shows no submandibular, cervical, or supraclavicular adenopathy. CARDIAC: Reveals a regular rate and rhythm with normal S1 and S2. LUNGS: Auscultation of lungs shows clear breath sounds bilaterally. There is no wheezing. ABDOMEN: Soft and nontender. There is no rebound or guarding. EXTREMITIES: Show no leg edema or calf tenderness. There is no cyanosis or clubbing. IMPRESSION: 1. Anemia secondary to acute blood loss. 2. Atrial fibrillation with controlled ventricular response. 3. Transitional cell carcinoma of the bladder. 4. History of coronary artery disease. PLAN: 1. Repeat CBC and transfuse as necessary. 2. Monitor platelet count and coagulation parameters. 3. Continue current recommendations from Cardiology. MD MIRELLA Meraz/SANDY /[id number]
[2019-04-12 13:08] LABS: HEMATOCRIT 21.6 % (38.2-49.6); HEMOGLOBIN 7.5 g/dL (14.0-18.0); MEAN CORPUSCULAR HEMOGLOBIN 32.1 pg (28-32); MEAN CORPUSCULAR HGB CONC 34.7 g/dL (31-35); MEAN CORPUSCULAR VOLUME 92.3 fL (81-99); PLATELET COUNT 160 x10e3/uL (140-360); RED BLOOD COUNT 2.34 x10e6/uL (4.3-5.7); RED CELL DISTRIBUTION WIDTH 21.1 % (11.7-14.4)
--- NOTE | 2019-04-12 14:48 | Diagnostic Imaging Report ---
PROCEDURE: A single AP view of the chest. COMPARISON: None. INDICATIONS: LINE PLACEMENT FINDINGS: Lines/tubes: Right IJ central line has been placed with its tip overlying the right atrium. There are sternotomy wire sutures. Lungs: The lungs are well inflated and clear. There is no evidence of pneumonia or pulmonary edema. Bibasilar subsegmental atelectasis. Pleura: There is no pleural effusion or pneumothorax. Heart and mediastinum: The heart and the mediastinum are unremarkable. Bones: No acute bony abnormality. IMPRESSION: 1. No acute cardiopulmonary disease. 2. Status post right IJ central line placement. Floyd Velásquez D.O. Dictated by: Floyd Velásquez D.O. on 04/12/2019 at 14:54 Electronically approved by: Floyd Velásquez D.O. on 04/12/2019 at 14:54
--- NOTE | 2019-04-12 16:27 | NUR ---
Nutrition Screen Note RD Recommendation for Physician: 1.Recommend changing diet to Cardiac Diet Plan of Care: RD following, monitoring for tolerance and adequacy Nutrition reason for involvement: Nutrition Risk Trigger Primary Diagnose(s): Atrial fibrillation, Hypotension, Hematuria PMH: Atrial fibrillation, Coronary artery disease, Hypertension, Hyperlipidemia, History of cancer, nephrectomy. Ht: 69in Wt:192lbs BMI: 28.35 kg/m2 IBW: 160lbs +/- 10% RD Assessment (04/12) 78 y/o M who developed postoperative bleeding and became hypotensive. Patients at bedside during the time of visit and provided most of patient food and nutrition related history. Per patients , pt vomited yesterday afternoon, no episodes of vomiting reported today. Patients reports pt has had suboptimal appetite and intake 2/2 oral surgery preformed ~ 3 days ago. Denied any difficulties with chewing or swallowing otherwise. noted patient had his first meal last night (04/11) and pt ate ~ 50% of his breakfast this morning. At home.pts reports pt with good appetite and intake, noted patient has been trying to lose weight as instructed per MD. Denies diarrhea/constipation, reports LBM was on 04/10, will continue to follow and monitor (04/12) Chart reviewed. Labs and meds reviewed. Current Diet: Regular Diet Malnutrition Evaluation (04/12) The patient does not meet criteria for a specified degree of malnutrition at this time. Will re-evaluate at follow-up as appropriate. Diet Education Needs Assessment: Diet education not indicated. Nutrition Care Level: LOW Signed: Danielle Powell, MS, RDN, LD
[2019-04-12 19:46] LABS: HEMATOCRIT 20.9 % (38.2-49.6)
[2019-04-12 19:51] LABS: HEMOGLOBIN 6.9 g/dL (14.0-18.0)
--- NOTE | 2019-04-12 20:26 | Progress Note ---
DATE: 04/12/2019 Cardiology Progress Note SUBJECTIVE: No major events overnight. OBJECTIVE: VITAL SIGNS: Temperature afebrile, pulse 87, respiratory rate 19, blood pressure 93/41, and saturating 100% on room air. GENERAL: Elderly man, in no acute distress. CARDIOVASCULAR: Regular rate and rhythm. No murmurs, rubs, or gallops. LUNGS: Clear to auscultation bilaterally. ABDOMEN: Soft, nontender, nondistended. NEURO AND PSYCH: Alert and oriented to person, place, and time. Normal affect. INPATIENT MEDICATIONS: Reviewed. TELEMETRY DATA: Reviewed, shows normal sinus rhythm. IMAGING DATA: Reviewed. ASSESSMENT AND PLAN: 1. Hypotension. 2. Acute blood loss anemia. 3. Atrial fibrillation with rapid ventricular rate, currently in sinus rhythm. 4. Acute kidney injury. 5. Coronary artery disease, status post three-vessel bypass surgery in the past. 6. Hypertension. 7. Hyperlipidemia. 8. Transitional cell carcinoma of the bladder. RECOMMENDATIONS: Blood pressure still remains borderline despite the patient receiving blood transfusion. We will continue to monitor. Hold all blood pressure medications at this time. The patient is asymptomatic. Defer pressors to the Critical Care team. Thank you for this consult. We will continue to follow. MD DENVER Chung/SANDY /[id number]
[2019-04-12] MEDS: TAMSULOSIN HCL 0.4 MG CAP PO SCH (20:58)
[2019-04-12] MEDS: METOPROLOL TARTRATE 25 MG TAB PO SCH (20:59)
[2019-04-13] VITALS (25 sets, daily range): BP systolic 101–128; BP diastolic 32–89
[2019-04-13] MEDS: DEXTROSE 5%/0.45% SOD CHL 1,000 ML IV SCH ×3 (00:24→20:56)
[2019-04-13 05:42] LABS: HEMATOCRIT 24.2 % (38.2-49.6); HEMOGLOBIN 8.1 g/dL (14.0-18.0); MEAN CORPUSCULAR HEMOGLOBIN 31.4 pg (28-32); MEAN CORPUSCULAR HGB CONC 33.5 g/dL (31-35); MEAN CORPUSCULAR VOLUME 93.8 fL (81-99); PLATELET COUNT 165 x10e3/uL (140-360); RED BLOOD COUNT 2.58 x10e6/uL (4.3-5.7); RED CELL DISTRIBUTION WIDTH 19.9 % (11.7-14.4)
[2019-04-13 05:56] LABS: RETICULOCYTE % 2.7 % (0.8-2.2)
[2019-04-13 06:23] LABS: ALBUMIN 2.5 g/dL (3.5-5.0); ALBUMIN/GLOBULIN RATIO 1.1 (0.8-2.0); ANION GAP 12.8 mmol/L (8-16); CALCIUM 8.2 mg/dL (8.4-10.2); CREATININE, SERUM 2.21 mg/dL (0.72-1.25); POTASSIUM 4.8 mmol/L (3.5-5.1)
--- NOTE | 2019-04-13 06:24 | NUR ---
Dr Short was called and notified of Hgb(8.1) result from this AM labs. CBI has been clamped and he was also notified of that Fact. No new orders.
[2019-04-13] MEDS: FOLIC ACID 1 MG TAB PO SCH (09:25)
[2019-04-13] MEDS: TRIMETHOPRIM/SULFAMETHOXAZOLE 160-800 MG TAB PO SCH ×2 (09:26→20:13)
[2019-04-13] MEDS: DIGOXIN 0.125 MG TAB PO SCH ×2 (09:26→09:30)
--- NOTE | 2019-04-13 11:59 | Diagnostic Imaging Report ---
Procedure: Central catheter placement. Indication: Patient in need of large bore IV access. Medications: Local anesthesia with 1% Xylocaine. Estimated blood loss: Minimal. Complications: No immediate. Procedure in detail: Informed consent for the procedure was obtained from the patient after discussion of risks and benefits. Procedure performed at the bedside. The right neck was prepped and draped in the standard full barrier sterile fashion. 1% lidocaine was administered into the skin for local anesthesia. Preliminary ultrasound shows patency of the right internal jugular vein. Images were stored to the medical record. Then, under continuous sonographic guidance, a 21-gauge micropuncture needle was advanced into the right internal jugular vein. A 0.018 inch wire was advanced centrally. The needle was then removed and access was secured with a micropuncture sheath. A 0.035 inch Amplatz superstiff wire was then advanced through the micropuncture sheath. Dilatation with a 7 Barbadian dilator was accomplished. A triple-lumen 7 Barbadian 20 cm long Arrow central catheter was then placed. Each lumen flushes and aspirates well. Catheter was secured to the skin with 3-0 Ethilon. A sterile dressing was applied. The patient tolerated the procedure well without immediate complication. Post procedure chest x-ray was ordered. Impression: Successful bedside placement of a triple-lumen right IJ central venous catheter utilizing ultrasound guidance. Signed by: Dr. Floyd Velásquez DO on 04/13/2019 11:56 AM
--- NOTE | 2019-04-13 13:18 | Progress Note ---
DATE: SUBJECTIVE: The patient received an additional unit of packed red blood cells yesterday. He says he feels better. He is urinating. He does not complain of dizziness or lightheadedness. He still has some hematuria. PHYSICAL EXAMINATION: VITAL SIGNS: The patient is afebrile. The blood pressure is 102/43. Pulse rate is 67 and saturation is 100%. HEENT: Shows no facial swelling or erythema. The oropharynx is normal. LYMPHATIC: Shows no submandibular, cervical, or supraclavicular adenopathy. CARDIAC: Reveals a regular rate and rhythm with a normal S1, S2. There are no murmurs or rubs heard. LUNGS: Auscultation of lungs shows rhonchorous breath sounds bilaterally. There is no wheezing. ABDOMEN: Soft, nontender. There is no rebound or guarding. EXTREMITIES: Show no leg edema or calf tenderness. There is no cyanosis or clubbing. SKIN: Shows no rashes. LABORATORY DATA: Hemoglobin is 8.1 and white blood cell count is 13.8. The platelet count is 165. BUN to creatinine ratio is 41 to 2.21. Other electrolytes are within normal limits. IMPRESSION: 1. Anemia secondary to acute blood loss. 2. Atrial fibrillation. 3. Transitional cell carcinoma of the bladder. 4. Acute on chronic renal failure. PLAN: 1. We will set up as tolerated. 2. Continue to monitor coag, blood counts and platelet count. 3. Continue bladder irrigation. Homer Zapien MD [facility]/SANDY /[id number]
--- NOTE | 2019-04-13 17:00 | NUR ---
Dr. Short updated on pt status. possible d/c of laura tomorrow. will continue to monitor
[2019-04-13] MEDS: TAMSULOSIN HCL 0.4 MG CAP PO SCH (20:13)
[2019-04-13] MEDS: METOPROLOL TARTRATE 25 MG TAB PO SCH (20:14)
[2019-04-14] VITALS (25 sets, daily range): BP systolic 97–148; BP diastolic 37–71
[2019-04-14 05:24] LABS: BASOPHILS # (AUTO) 0.1 (0.0-0.1); BASOPHILS % 0.3 % (0.0-1.0); EOSINOPHILS # (AUTO) 0.3 (0.0-0.4); HEMATOCRIT 23.8 % (38.2-49.6); LYMPHOCYTES # (AUTO) 1.7 (1.0-3.2); LYMPHOCYTES % 11.7 % (18.0-39.1); MEAN CORPUSCULAR HEMOGLOBIN 31.7 pg (28-32); MEAN CORPUSCULAR HGB CONC 33.6 g/dL (31-35); MEAN CORPUSCULAR VOLUME 94.4 fL (81-99); MONOCYTES # (AUTO) 1.1 (0.2-0.8); MONOCYTES % 7.9 % (4.4-11.3); NEUTROPHILS % 76.6 % (38.7-80.0); PLATELET COUNT 181 x10e3/uL (140-360); RED BLOOD COUNT 2.52 x10e6/uL (4.3-5.7); RED CELL DISTRIBUTION WIDTH 19.5 % (11.7-14.4)
[2019-04-14 05:38] LABS: INR 1.03
[2019-04-14 05:39] LABS: PARTIAL THROMBOPLASTIN TIME 31.1 seconds (23.8-35.5)
[2019-04-14 05:52] LABS: ALBUMIN 2.5 g/dL (3.5-5.0); ANION GAP 12.7 mmol/L (8-16); CALCIUM 8.5 mg/dL (8.4-10.2); CREATININE, SERUM 1.74 mg/dL (0.72-1.25); POTASSIUM 4.7 mmol/L (3.5-5.1)
[2019-04-14] MEDS: DEXTROSE 5%/0.45% SOD CHL 1,000 ML IV SCH (07:00)
[2019-04-14] MEDS: TRIMETHOPRIM/SULFAMETHOXAZOLE 160-800 MG TAB PO SCH ×2 (08:08→20:44)
[2019-04-14] MEDS: FOLIC ACID 1 MG TAB PO SCH (08:08)
[2019-04-14] MEDS: BISACODYL 5 MG TAB EC PO SCH (10:03)
--- NOTE | 2019-04-14 10:54 | Progress Note ---
DATE: SUBJECTIVE: The patient has some nausea with eating. He was switched to clear liquids. He still has some hematuria. PHYSICAL EXAMINATION: VITAL SIGNS: The blood pressure is 143/48, saturation is 100% on 2 L. The pulse is 59. HEENT: Shows no facial swelling or erythema. CARDIAC: Reveals regular rate and rhythm with normal S1 and S2. There are no murmurs or rubs. LUNGS: Auscultation of lungs shows clear breath sounds bilaterally. There is no wheezing. ABDOMEN: Soft, nontender. There is no rebound or guarding. EXTREMITIES: Shows no leg edema or calf tenderness. There is no cyanosis or clubbing. SKIN: Shows no rashes. NEUROLOGICAL: Shows no focal abnormalities. IMPRESSION: 1. Anemia secondary to acute blood loss. 2. Atrial fibrillation. 3. Hnrtn-lq-cbeopub renal failure. 4. Transitional cell carcinoma of the bladder. PLAN: 1. Physical therapy to help the patient stand up. 2. Restart bladder irrigation. 3. Advance diet as tolerated. 4. Continue to monitor CBC. 5. Continue current cardiac regimen. Homer Zapien MD [facility]/MODL /[id number]
[2019-04-14] MEDS ORDERED: ONDANSETRON HCL INJ 2MG/ML 2ML 2 MG/ML VIAL IV PRN (11:15)
[2019-04-14] MEDS: TAMSULOSIN HCL 0.4 MG CAP PO SCH (20:44)
[2019-04-14] MEDS: METOPROLOL TARTRATE 25 MG TAB PO SCH (20:44)
[2019-04-15] VITALS (13 sets, daily range): BP systolic 16–126; BP diastolic 34–59
[2019-04-15 05:11] LABS: HEMATOCRIT 22.4 % (38.2-49.6); HEMOGLOBIN 7.5 g/dL (14.0-18.0); MEAN CORPUSCULAR HEMOGLOBIN 31.8 pg (28-32); MEAN CORPUSCULAR HGB CONC 33.5 g/dL (31-35); MEAN CORPUSCULAR VOLUME 94.9 fL (81-99); PLATELET COUNT 212 x10e3/uL (140-360); RED BLOOD COUNT 2.36 x10e6/uL (4.3-5.7)
[2019-04-15 05:28] LABS: ALBUMIN 2.6 g/dL (3.5-5.0); CALCIUM 8.6 mg/dL (8.4-10.2); CREATININE, SERUM 1.65 mg/dL (0.72-1.25)
--- NOTE | 2019-04-15 06:06 | NUR ---
PT IS TRANSFERRED FROM ICU .PT IS AOX3 .RESPIRATIONS ARE EVEN AND UNLABORED .PT IS IN CONTIGUOUS BLADDER IRRIGATION.DENIES PAIN FAMILY AT THE BEDSIDE .CONTINUE TO MONITOR
--- NOTE | 2019-04-15 07:10 | NUR ---
PATIENT ALERT AND IN STABLE CONDITION WITH NO S/S OF RESPIRATORY DISTRESS. TELEMETRY APPLIED. PRESENT IN ROOM. CALL LIGHT IS WITHIN REACH, PATIENT INSTRUCTED TO CALL FOR ASSISTANCE NEEDED.
[2019-04-15] MEDS: FOLIC ACID 1 MG TAB PO SCH (08:52)
[2019-04-15] MEDS: BISACODYL 5 MG TAB EC PO SCH (08:52)
[2019-04-15] MEDS: TRIMETHOPRIM/SULFAMETHOXAZOLE 160-800 MG TAB PO SCH ×2 (08:52→21:35)
[2019-04-15] MEDS: DIGOXIN 0.125 MG TAB PO SCH (08:53)
--- NOTE | 2019-04-15 11:30 | NUR ---
CALLED AND RECEIVED ORDER FROM DR. SOLER TO CHANGE PATIENT'S DIET TO REGULAR. ALSO INFORMED DR. SOLER OF PATIENT'S HGB OF 7.5- NO NEW ORDERS RECEIVED.
--- NOTE | 2019-04-15 16:05 | Progress Note ---
DATE: SUBJECTIVE: The patient feels better. He was transferred out of the Intensive Care Unit. He is having no more lightheadedness. He is able to ambulate to the bathroom without dizziness. PHYSICAL EXAMINATION: VITAL SIGNS: Stable. HEENT: Shows no facial swelling or erythema. CARDIAC: Reveals regular rate and rhythm with normal S1, S2. LUNGS: Auscultation of lungs reveals clear breath sounds bilaterally. There is no wheezing. ABDOMEN: Soft, nontender. There is no rebound or guarding. EXTREMITIES: Show no leg edema or calf tenderness. There is no cyanosis or clubbing. SKIN: Shows no rashes. IMPRESSION: 1. Anemia, secondary to acute blood loss. 2. Atrial fibrillation. 3. Dwork-ba-odaaoex renal failure. 4. 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 PLAN: 1. Monitor the patient and repeat CBC tomorrow. 2. Out of bed as tolerated. 3. Possible discharge home tomorrow. MD MIRELLA Meraz/SANDY /[id number]
--- NOTE | 2019-04-15 19:09 | NUR ---
PATIENT IN STABLE CONDITION WITH NO S/S OF RESPIRATORY DISTRESS. NO PAIN VOICED. TELEMETRY APPLIED. CALL LIGHT IS WITHIN REACH, PATIENT INSTRUCTED TO CALL FOR ASSISTANCE NEEDED. BEDSIDE REPORT GIVEN TO ONCOMING NURSE.
--- NOTE | 2019-04-15 19:44 | NUR ---
RECEIVED PT IN BED AOX3 .DENIES PAIN .FAMILY AT THE BEDSIDE .CALL LIGHT WITH IN REACH .CONTINUE TO MONITOR
[2019-04-15] MEDS: TAMSULOSIN HCL 0.4 MG CAP PO SCH (21:35)
[2019-04-15] MEDS: METOPROLOL TARTRATE 25 MG TAB PO SCH (21:36)
[2019-04-16] VITALS (8 sets, daily range): BP systolic 104–140; BP diastolic 51–99
[2019-04-16 06:00] LABS: BASOPHILS # (AUTO) 0.1 (0.0-0.1); BASOPHILS % 0.5 % (0.0-1.0); EOSINOPHILS # (AUTO) 0.3 (0.0-0.4); EOSINOPHILS % 2.9 % (0.0-6.0); HEMOGLOBIN 7.2 g/dL (14.0-18.0); LYMPHOCYTES # (AUTO) 1.9 (1.0-3.2); LYMPHOCYTES % 17.7 % (18.0-39.1); MEAN CORPUSCULAR HEMOGLOBIN 31.6 pg (28-32); MEAN CORPUSCULAR HGB CONC 32.7 g/dL (31-35); MEAN CORPUSCULAR VOLUME 96.5 fL (81-99); MONOCYTES # (AUTO) 0.9 (0.2-0.8); MONOCYTES % 8.6 % (4.4-11.3); NEUTROPHILS # (AUTO) 7.4 (2.1-6.9); NEUTROPHILS % 68.3 % (38.7-80.0); PLATELET COUNT 223 x10e3/uL (140-360); RED BLOOD COUNT 2.28 x10e6/uL (4.3-5.7); RED CELL DISTRIBUTION WIDTH 19.1 % (11.7-14.4)
--- NOTE | 2019-04-16 06:33 | NUR ---
PT RESTING .DENIES PAIN .URINE IS DARK RED .FAMILY AT THE BEDSIDE CALL LIGHT WITH IN REACH .CONTINUE TO MONITOR
--- NOTE | 2019-04-16 07:10 | NUR ---
BEDSIDE REPORT GIVEN TO THE ONCOMING NURSE
--- NOTE | 2019-04-16 07:10 | NUR ---
BEDSIDE REPORT GIVEN TO THE ONCOMING NURSE
--- NOTE | 2019-04-16 07:30 | NUR ---
PT UP IN BED NODISTRESS NOTED,DENIES PAIN ,PT VOIDED BLOODY URINE
--- NOTE | 2019-04-16 07:35 | NUR ---
spoke with dr navarro,re;low h&h no new orders
[2019-04-16] MEDS: BISACODYL 5 MG TAB EC PO SCH (08:07)
[2019-04-16] MEDS: TRIMETHOPRIM/SULFAMETHOXAZOLE 160-800 MG TAB PO SCH ×2 (08:07→21:00)
[2019-04-16] MEDS: FOLIC ACID 1 MG TAB PO SCH (08:07)
[2019-04-16] MEDS: DIGOXIN 0.125 MG TAB PO SCH (08:08)
--- NOTE | 2019-04-16 08:15 | NUR ---
DR GRIGGS HERE NO NEW ORDERS
--- NOTE | 2019-04-16 10:54 | Progress Note ---
DATE: SUBJECTIVE: The patient still has some hematuria when he urinates. He says it is worse when he initiates his urination when it finishes. He was able to sit in the chair today. He does not have lightheadedness. PHYSICAL EXAMINATION: VITAL SIGNS: The blood pressure is 107/53 and the saturation is 98%. Pulse is 64. HEENT: Shows no facial swelling or erythema. The oropharynx is normal. LYMPHATIC: Shows no submandibular, cervical, or supraclavicular adenopathy. CARDIAC: Reveals a regular rate and rhythm with normal S1, S2. There are no murmurs or rubs heard. LUNGS: Auscultation of lungs reveals clear breath sounds bilaterally. There is no wheezing. ABDOMEN: Soft, nontender. There is no rebound or guarding. EXTREMITIES: Show no leg edema or calf tenderness. IMPRESSION: 1. Anemia secondary to acute blood loss. 2. Acute on chronic renal failure. 3. 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 4. Atrial fibrillation. PLAN: 1. Continue to hold warfarin. This will need to be restarted as an outpatient after the hematuria subsides. 2. Continue digoxin and metoprolol. 3. Consider observation for another 24 hours with a repeat hemoglobin in the morning. MD MIRELLA Meraz/SANDY /[id number]
--- NOTE | 2019-04-16 13:15 | NUR ---
SPOKE WITH DR SOLER ,ORDERS WRITTEN,PT VOIDING BLOODY URINE,SMALL BLOOD CLOT NOTED
--- NOTE | 2019-04-16 17:14 | NUR ---
PT UP IN BED NO DISTRESS NTOED,DENIES PAIN.VOIDING WITHOUT DIFFICULTY,BLOOD URINE
--- NOTE | 2019-04-16 19:00 | NUR ---
BS rounds completed with morning nurse. Pt alert and oriented to name. Lying in bed HOB 45 degrees. Denies pain at this time. Family at bedside. Call zamarripa within reach. Will continue to monitor.
[2019-04-16 19:11] LABS: BASOPHILS # (AUTO) 0.1 (0.0-0.1); BASOPHILS % 0.5 % (0.0-1.0); EOSINOPHILS # (AUTO) 0.5 (0.0-0.4); EOSINOPHILS % 3.6 % (0.0-6.0); HEMATOCRIT 21.8 % (38.2-49.6); HEMOGLOBIN 7.4 g/dL (14.0-18.0); LYMPHOCYTES # (AUTO) 2.3 (1.0-3.2); LYMPHOCYTES % 18.6 % (18.0-39.1); MEAN CORPUSCULAR HEMOGLOBIN 32.3 pg (28-32); MEAN CORPUSCULAR HGB CONC 33.9 g/dL (31-35); MEAN CORPUSCULAR VOLUME 95.2 fL (81-99); MONOCYTES # (AUTO) 1.1 (0.2-0.8); MONOCYTES % 8.9 % (4.4-11.3); NEUTROPHILS # (AUTO) 8.2 (2.1-6.9); NEUTROPHILS % 65.3 % (38.7-80.0); PLATELET COUNT 225 x10e3/uL (140-360); RED BLOOD COUNT 2.29 x10e6/uL (4.3-5.7); RED CELL DISTRIBUTION WIDTH 19.2 % (11.7-14.4)
--- NOTE | 2019-04-16 20:19 | NUR ---
Spoke with Dr. Short regarding Hgb 7.4, stated ok to tell Pt blood count is stable, no further orders.
[2019-04-16 20:46] LABS: LYMPHOCYTES % (MANUAL) 35 % (19-48); MONOCYTES % (MANUAL) 7 % (3.4-9.0); MYELOCYTES % (MANUAL) 3 % (0-0); NEUTROPHILS % (MANUAL) 54 % (40-74)
[2019-04-16 20:47] LABS: ANISOCYTOSIS SLIGHT; HYPOCHROMASIA MODERATE; PLATELET ESTIMATE ADEQUATE; PLATELET MORPHOLOGY COMMENT NORMAL; POIKILOCYTOSIS SLIGHT; RBC MORPHOLOGY COMMENT NORMAL
[2019-04-16] MEDS: METOPROLOL TARTRATE 25 MG TAB PO SCH (21:00)
[2019-04-16] MEDS: TAMSULOSIN HCL 0.4 MG CAP PO SCH (21:09)
[2019-04-17 00:10] VITALS: BP 113/53
[2019-04-17 05:45] VITALS: BP 125/58
--- NOTE | 2019-04-17 06:33 | NUR ---
Pt lying in bed with eyes closed. RR even and unlabored. RIJ x3, intact. No s/s of pain or discomfort. Will continue to monitor.
--- NOTE | 2019-04-17 07:45 | NUR ---
dr navarro here,discharged patient.
[2019-04-17 07:47] VITALS: BP 129/55
[2019-04-17 07:49] VITALS: BP 129/55
[2019-04-17] MEDS: DIGOXIN 0.125 MG TAB PO SCH (08:33)
[2019-04-17] MEDS: BISACODYL 5 MG TAB EC PO SCH (08:33)
[2019-04-17] MEDS: TRIMETHOPRIM/SULFAMETHOXAZOLE 160-800 MG TAB PO SCH (08:33)
[2019-04-17] MEDS: FOLIC ACID 1 MG TAB PO SCH (08:33)
--- NOTE | 2019-04-17 09:44 | NUR ---
pt discharged home ,iv dcd without rednessor swelling,tip intact.instructions given copy on chart,transported to auto via w/c
[2019-04-17] MEDS ORDERED: ONDANSETRON HCL 4 MG ORAL DISINTEGRATING TAB PO PRN (09:45)
--- NOTE | 2019-04-17 10:59 | Progress Note ---
DATE: SUBJECTIVE: The patient has remained stable overnight. He is not complaining of dizziness. He is ambulating well. PHYSICAL EXAMINATION: VITAL SIGNS: Stable. HEENT: Shows no facial swelling or erythema. LYMPHATIC: Shows no submandibular, cervical or supraclavicular adenopathy. CARDIAC: Reveals a regular rate and rhythm with a normal S1 and S2. There are no murmurs or rubs. LUNGS: Auscultation of lungs reveals clear breath sounds bilaterally. There is no wheezing. ABDOMEN: Soft, nontender. There is no rebound or guarding. EXTREMITIES: There is no leg edema or calf tenderness. There is no cyanosis or clubbing. SKIN: Shows no rashes. NEUROLOGICAL: Shows no focal abnormalities. IMPRESSION: 1. Anemia secondary to acute blood loss. 2. Acute on chronic renal failure. 3. Atrial fibrillation. 4. Transitional cell carcinoma of the bladder. PLAN: 1. Discharge home. 2. Hold warfarin until the patient is re-evaluated by his shake maker, Dr. Hayes. 3. Continue digoxin and metoprolol. 4. Remove central line prior to discharge. Homer Zapien MD [facility]/SANDY /[id number]
[2019-04-17 20:33] VITALS: BP 124/82
--- NOTE | 2019-04-18 04:55 | Operative Report ---
DATE OF PROCEDURE: 04/10/2019 SURGEON: Baljeet Short MD PREOPERATIVE DIAGNOSES: 1. Hematuria. 2. Possible recurrent transitional cell carcinoma. POSTOPERATIVE DIAGNOSIS: Recurrent transitional cell carcinoma of the bladder. OPERATIVE PROCEDURES PERFORMED: 1. Cystoscopy. 2. Transurethral resection of multiple bladder tumors, large. ANESTHESIA: General anesthesia. ESTIMATED BLOOD LOSS: About 150 mL. INDICATIONS: Mr. Paolo Aggarwal is an 78-year-old gentleman with a history of recurrent superficial TCC of the bladder. His last resection was approximately one year ago. He has had increasing hematuria over the last month. He now presents for potential diagnosis and management of this problem. PROCEDURE IN DETAIL: The patient was brought into the operative room, placed in supine position. After administration of general anesthesia, he was placed in dorsal lithotomy position and prepped and draped in usual sterile fashion. Cystourethroscopy was performed using 21-Finnish cystoscope. The anterior and posterior urethra were noted to be normal. 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 The bladder was entered with minimal difficulty. Upon entrance into the bladder, nearly 80% of the lining, the bladder was covered with superficial tumors of varying sizes. There were scant normal patches of bladder mucosa. The ureteral orifices could not be clearly visualized at the side. The bladder was left full, and the cystoscope and sheath were removed. A 26-Finnish resectoscope sheath was then placed and an FanChatter resectoscope was used to perform the procedure. Approximately 75-80% of the visualized tumor was resected down to the level of the lamina propria and muscle. There was an area on the right lateral wall where the resection was noted to be a little bit deeper and perivesical fat was visualized. No attempt was made to completely resect the entire lesion given his age and the amount of tumor was allowed. Once moderate amount of tumor was removed and hemostasis appeared to be intact, the bladder was left full and the resectoscope and sheath were removed. The patient was noted to have a reasonable urinary flow with coude. A 24-Finnish 3-way Coude catheter was then placed in a retrograde fashion and the balloon inflated with 45 mL of sterile water. The urinary efflux was noted to be blood tinged. The patient was started on continuous bladder irrigation and he was returned to supine position. Anesthesia was reversed, he was transferred to a bed and taken to the postanesthesia care unit in good condition. Of note, the needle and instrument count were correct at the conclusion of the case. MD FABIEN Pedro/SANDY /[id number]
== END 2019-04-17 09:36 | disposition home or self-care (01) | DRG 669 ==
LOC: OR 06:37 → PACU V 10:42 → IMCU 12:44 → ICU 19:17 → OBSVTOIN 04-11 11:49 → MED/SURG3 04-15 05:48
PROVIDERS: ADMIT Urology; ATTEND Urology
PROC: 0TBB8ZZ Excision of Bladder, Via Natural or Artificial Opening Endoscopic (ICD-10-PCS; principal; 2019-04-10 09:00)
PROC: 30233N1 Transfusion of Nonautologous Red Blood Cells into Peripheral Vein, Percutaneous Approach (ICD-10-PCS; 2019-04-11)
PROC: 02HV33Z Insertion of Infusion Device into Superior Vena Cava, Percutaneous Approach (ICD-10-PCS; 2019-04-12)
PROC: B548ZZA Ultrasonography of Superior Vena Cava, Guidance (ICD-10-PCS; 2019-04-12)
DX: C67.2 Malignant neoplasm of lateral wall of bladder (principal); N17.9 Acute kidney failure, unspecified; E87.1 Hypo-osmolality and hyponatremia; D62 Acute posthemorrhagic anemia; I95.9 Hypotension, unspecified; E86.0 Dehydration; Z95.1 Presence of aortocoronary bypass graft; I48.91 Unspecified atrial fibrillation; Z79.01 Long term (current) use of anticoagulants; Z91.048 Other nonmedicinal substance allergy status; I95.81 Postprocedural hypotension; I25.10 Atherosclerotic heart disease of native coronary artery without angina pectoris; E78.5 Hyperlipidemia, unspecified; N18.2 Chronic kidney disease, stage 2 (mild); Z87.891 Personal history of nicotine dependence; Z90.5 Acquired absence of kidney; I12.9 Hypertensive chronic kidney disease with stage 1 through stage 4 chronic kidney disease, or unspecified chronic kidney disease; Z79.82 Long term (current) use of aspirin
CPT/HCPCS: 36415; 36556; 71045; 71046; 74470; 76937; 80048; 80053; 83010; 84484; 85007; 85014; 85018; 85025; 85027; 85045; 85610; 85730; 86850; 86900; 86920; 87040; 88307; 93005; 93306; 93880; 97139; C1751; C1758; C1769; G0378; J0696; J1100; J1160; J1940; J2001; J2405; J3010; J7030; J7040; J7050; P9016

== ENCOUNTER 2019-06-26 05:25 | Inpatient (IN) | payer MEDICARE ==
[2019-06-23 12:31] LABS: BASOPHILS % 0.4 % (0.0-1.0); EOSINOPHILS % 0.1 % (0.0-6.0); HEMATOCRIT 33.5 % (38.2-49.6); LYMPHOCYTES # (AUTO) 1.1 (1.0-3.2); LYMPHOCYTES % 9.8 % (18.0-39.1); MEAN CORPUSCULAR HEMOGLOBIN 27.6 pg (28-32); MEAN CORPUSCULAR HGB CONC 29.9 g/dL (31-35); MEAN CORPUSCULAR VOLUME 92.5 fL (81-99); MONOCYTES # (AUTO) 0.4 (0.2-0.8); NEUTROPHILS # (AUTO) 9.4 (2.1-6.9); NEUTROPHILS % 84.4 % (38.7-80.0); PLATELET COUNT 289 x10e3/uL (140-360); RED BLOOD COUNT 3.62 x10e6/uL (4.3-5.7); RED CELL DISTRIBUTION WIDTH 24.3 % (11.7-14.4)
[2019-06-23 12:50] LABS: ANION GAP 17.9 mmol/L (8-16); CALCIUM 10.3 mg/dL (8.4-10.2); CREATININE, SERUM 1.87 mg/dL (0.72-1.25); POTASSIUM 4.9 mmol/L (3.5-5.1)
[~2019-06-26] VITALS: Ht 175.3 cm; Wt 88.2 kg
[~2019-06-26 05:25] MED LIST changes: +BENICAR20 MG PO; +GABAPENTIN100 MG PO; +XYZAL5 MG PO
[2019-06-26] MEDS ORDERED: CEFTRIAXONE SOD 1 GM/NS 50 ML 50 ML IV ONE (06:47)
[2019-06-26] MEDS ORDERED: IOPAMIDOL 300MG/ML 50ML INFUS..BTL IV ONE (07:10)
--- NOTE | 2019-06-26 07:15 | NUR ---
SPIRITUAL CARE - Pre-Surgery Assessment: Pt in bed. Pt's at bedside. Pt reported supportive attention from family and friends. Intervention: I provided pastoral presence, hospitality, and sympathetic listening. I acquainted pt with availability of head setter while hospitalized. Outcome: Pt expressed appreciation for visit. No need for follow up indicated at this time. RUIZ Duranlain Spiritual Care Department O: [phone] Pager: [phone] ([phone] number calling from)
--- NOTE | 2019-06-26 11:26 | NUR ---
received report from PACU nurse, awaiting pt arrival to unit
--- NOTE | 2019-06-26 11:40 | NUR ---
pt arrived on the unit, in stable condition
[2019-06-26 11:45] VITALS: BP 166/74
[2019-06-26 12:26] VITALS: BP 197/79
[2019-06-26] MEDS ORDERED: EPHEDRINE SULFATE INJ 50 MG/10 ML SYR ONE (12:41)
[2019-06-26] MEDS ORDERED: PROPOFOL IV EMULSION 10 MG/ML 20 ML VIAL ONE (12:41)
[2019-06-26] MEDS ORDERED: DEXAMETHASONE SOD PHOS INJ 4 MG/ML VIAL ONE (12:41)
[2019-06-26] MEDS ORDERED: LIDOCAINE HCL 2% LOCAL INJ 5 ML SDV VIAL INJ ONE (12:41)
[2019-06-26] MEDS ORDERED: SEVOFLURANE INHAL SOLN 250 ML PEN BTL ONE (12:41)
[2019-06-26] MEDS ORDERED: ONDANSETRON HCL INJ 2MG/ML 2ML 2 MG/ML VIAL ONE (12:41)
[2019-06-26] MEDS ORDERED: GLYCOPYRROLATE INJ 1MG/ 5 ML SYR ONE (12:41)
[2019-06-26] MEDS ORDERED: SODIUM CHLORIDE 0.45% 1,000 ML IV ONE (13:45)
[2019-06-26 16:36] VITALS: BP 152/69
[2019-06-26] MEDS ORDERED: MIDAZOLAM HCL 2 MG/2 ML VIAL ONE (17:57)
[2019-06-26] MEDS ORDERED: FENTANYL CITRATE/PF 100MCG/2 ML INJ ONE (17:57)
[2019-06-26] MEDS ORDERED: LORATADINE 10 MG TAB PO PRN (18:15)
--- NOTE | 2019-06-26 19:35 | NUR ---
RECEIVED REPORT FROM PREVIOUS NURSE. CALL LIGHT WITHIN REACH. PATIENT HAS CONTINUOUS BLADDER IGGRATION AND HEMATURIA.
[2019-06-26 20:00] VITALS: BP 119/56
[2019-06-26] MEDS: ATORVASTATIN 10 MG TAB PO SCH (21:59)
[2019-06-26] MEDS: GABAPENTIN 100 MG CAP PO SCH (21:59)
[2019-06-26] MEDS: METOPROLOL TARTRATE 25 MG TAB PO SCH (21:59)
[2019-06-27] VITALS (8 sets, daily range): BP systolic 95–117; BP diastolic 48–67
[2019-06-27 05:27] LABS: BASOPHILS # (AUTO) 0.1 (0.0-0.1); BASOPHILS % 0.3 % (0.0-1.0); EOSINOPHILS # (AUTO) 0.1 (0.0-0.4); EOSINOPHILS % 0.7 % (0.0-6.0); HEMATOCRIT 24.3 % (38.2-49.6); HEMOGLOBIN 7.3 g/dL (14.0-18.0); LYMPHOCYTES # (AUTO) 1.7 (1.0-3.2); LYMPHOCYTES % 10.3 % (18.0-39.1); MEAN CORPUSCULAR HEMOGLOBIN 27.4 pg (28-32); MEAN CORPUSCULAR VOLUME 91.4 fL (81-99); MONOCYTES # (AUTO) 1.3 (0.2-0.8); NEUTROPHILS # (AUTO) 13.1 (2.1-6.9); NEUTROPHILS % 78.8 % (38.7-80.0); PLATELET COUNT 306 x10e3/uL (140-360); RED BLOOD COUNT 2.66 x10e6/uL (4.3-5.7); RED CELL DISTRIBUTION WIDTH 24.1 % (11.7-14.4)
[2019-06-27 05:52] LABS: ANION GAP 14.3 mmol/L (8-16); CREATININE, SERUM 1.85 mg/dL (0.72-1.25); POTASSIUM 5.3 mmol/L (3.5-5.1)
--- NOTE | 2019-06-27 07:21 | NUR ---
Gave report to oncoming nurse. Patient in bed. call light within reach.
--- NOTE | 2019-06-27 07:34 | NUR ---
Rcvd patient in report this am. Patient is asleep in bed at this time. NO s/s of distress noted. CBI infusing. Cartagena in place
[2019-06-27] MEDS: ALLOPURINOL 300 MG TAB PO SCH (08:26)
[2019-06-27] MEDS: FOLIC ACID 1 MG TAB PO SCH (08:26)
[2019-06-27] MEDS: TAMSULOSIN HCL 0.4 MG CAP PO SCH (08:26)
[2019-06-27] MEDS: DIGOXIN 0.125 MG TAB PO SCH (08:26)
[2019-06-27] MEDS: CHOLECALCIFEROL 1,000 UNIT TAB PO SCH (08:26)
[2019-06-27] MEDS: NON-FORMULARY MEDICATION (Biotin 10,000 MCG) PO SCH (08:26)
[2019-06-27] MEDS: OLMESARTAN 20 MG TAB PO SCH (08:26)
[2019-06-27] MEDS: GABAPENTIN 100 MG CAP PO SCH ×3 (08:26→21:47)
[2019-06-27] MEDS: HYDROCHLOROTHIAZIDE 25 MG TAB PO SCH (08:26)
--- NOTE | 2019-06-27 09:08 | NUR ---
Call placed to Dr. Short to inform of abnormal labs. No new orders. Continue to monitor
--- NOTE | 2019-06-27 10:23 | NUR ---
Patient c/o bladder pain and discomfort. Manual irrigation performed. No clots noted but hematuria noted. Restarted the irrigation at this time. Patient was assisted to edge of bed and noted to be dizzy and faint. Patient placed back to bed and BP checked. Noted at 110/52
--- NOTE | 2019-06-27 12:45 | NUR ---
Patient is AAOx3. Post op TURBT. [place] cath with CBI. [place] tinged urine. Lung tolbert clear to auscultation. Bowel sounds present x4. No edema noted. Bilateral SCD's in place. Spouse at bedside.
--- NOTE | 2019-06-27 19:00 | NUR ---
RECEIVED PATIENT IN BEDSIDE SHIFT REPORT. CBI RUNNING TO MEADE, RED URINE NOTED. NO PAIN REPORTED. NO S&S OF DISTRESS NOTED. BED LOCKED IN LOWEST POSITION, SIDE RAILS UPX2, CALL LIGHT IN REACH.
--- NOTE | 2019-06-27 20:45 | NUR ---
MD SOLER IN TO SEE PATIENT. SAID TO NOT REPLACE CBI BAGS AFTER THEY RUN OUT SO HE CAN SEE HOW THE PATIENT DOES WITHOUT IRRIGATION. ORDERS RECEIVED TO ADMIT TO INPATIENT. NO OTHER ORDERS RECEIVED.
[2019-06-27] MEDS: METOPROLOL TARTRATE 25 MG TAB PO SCH (21:00)
[2019-06-27] MEDS: ATORVASTATIN 10 MG TAB PO SCH (21:47)
[2019-06-28] VITALS (8 sets, daily range): BP systolic 89–125; BP diastolic 44–57
--- NOTE | 2019-06-28 03:02 | NUR ---
MEADE BAG EMPTIED AFTER CBI FINISHED. URINE IS DARK RED, BUT NO CLOTS NOTED.
[2019-06-28 05:58] LABS: BASOPHILS # (AUTO) 0.1 (0.0-0.1); BASOPHILS % 0.3 % (0.0-1.0); EOSINOPHILS # (AUTO) 0.9 (0.0-0.4); EOSINOPHILS % 4.8 % (0.0-6.0); LYMPHOCYTES # (AUTO) 2.9 (1.0-3.2); LYMPHOCYTES % 16.6 % (18.0-39.1); MEAN CORPUSCULAR HEMOGLOBIN 27.9 pg (28-32); MEAN CORPUSCULAR HGB CONC 30.8 g/dL (31-35); MEAN CORPUSCULAR VOLUME 90.7 fL (81-99); MONOCYTES # (AUTO) 1.7 (0.2-0.8); MONOCYTES % 9.9 % (4.4-11.3); NEUTROPHILS # (AUTO) 11.8 (2.1-6.9); PLATELET COUNT 226 x10e3/uL (140-360); RED BLOOD COUNT 2.15 x10e6/uL (4.3-5.7); RED CELL DISTRIBUTION WIDTH 24.2 % (11.7-14.4)
[2019-06-28 06:03] LABS: HEMATOCRIT 19.5 % (38.2-49.6)
--- NOTE | 2019-06-28 06:07 | NUR ---
PAGED MD SOLER CONCERNING CRITICAL LAB VALUE OF HGB - 6.0 AND HCT - 19.5. AWAITING CALL BACK.
[2019-06-28 06:19] LABS: ALBUMIN 2.5 g/dL (3.5-5.0); ALBUMIN/GLOBULIN RATIO 1.1 (0.8-2.0); ANION GAP 16.2 mmol/L (8-16); CALCIUM 8.8 mg/dL (8.4-10.2); CREATININE, SERUM 2.29 mg/dL (0.72-1.25); POTASSIUM 5.2 mmol/L (3.5-5.1)
[2019-06-28] MEDS ORDERED: SODIUM CHLORIDE 0.9% 250ML 250 ML IV ONE (06:45)
[2019-06-28 07:51] LABS: ANISOCYTOSIS SLIGHT; BAND NEUTROPHILS % (MANUAL) 1 %; ELLIPTOCYTE, RBC SLIGHT; EOSINOPHILS % (MANUAL) 4 % (0-7); LYMPHOCYTES % (MANUAL) 21 % (19-48); MONOCYTES % (MANUAL) 2 % (3.4-9.0); NEUTROPHILS % (MANUAL) 72 % (40-74)
[2019-06-28 07:52] LABS: HYPOCHROMASIA SLIGHT; PLATELET ESTIMATE ADEQUATE; PLATELET MORPHOLOGY COMMENT FEW EDTA CLUMPING; RBC MORPHOLOGY COMMENT ABNORMAL; TEAR DROP CELLS FEW
--- NOTE | 2019-06-28 08:48 | NUR ---
1st unit of blood now started. pt is aa0x3. no s/s of distress at this time verified blood at bedside with hailee cheng will monitor closely
[2019-06-28] MEDS: HYDROCHLOROTHIAZIDE 25 MG TAB PO SCH (08:54)
[2019-06-28] MEDS: OLMESARTAN 20 MG TAB PO SCH (08:54)
[2019-06-28] MEDS: NON-FORMULARY MEDICATION (Biotin 10,000 MCG) PO SCH (09:00)
--- NOTE | 2019-06-28 09:33 | NUR ---
NOTIFIED MD SOLER REGARDING LOW BP F 88/44 HOWEVER PT IS ASYMPTOMATIC RESTING IN BED WHILE GETTING BLOOD TRANSFUSION AND DARK RED URINE BLOOD WITH NO CLOTS AND CBI CLAMPED MD STATES TO WATCH PT AT THIS TIME NO ORDERS RECEIVED
[2019-06-28] MEDS: DIGOXIN 0.125 MG TAB PO SCH (10:11)
[2019-06-28] MEDS: FOLIC ACID 1 MG TAB PO SCH (10:11)
[2019-06-28] MEDS: ALLOPURINOL 300 MG TAB PO SCH (10:11)
[2019-06-28] MEDS: TAMSULOSIN HCL 0.4 MG CAP PO SCH (10:11)
[2019-06-28] MEDS: GABAPENTIN 100 MG CAP PO SCH ×3 (10:11→21:18)
[2019-06-28] MEDS: CHOLECALCIFEROL 1,000 UNIT TAB PO SCH (10:11)
[2019-06-28] MEDS ORDERED: SODIUM CHLORIDE 0.9% 250ML 250 ML ONE (11:02)
--- NOTE | 2019-06-28 11:12 | NUR ---
SECOND UNIT OF BLOOD STARTED VERIFIED WITH HOWIE PALOMARES AT BEDSIDE
--- NOTE | 2019-06-28 14:02 | NUR ---
MD SOLER ROUNDED STATES PT IS DOING BETTER ASSISTED PT TO RECLINER PT DID WELL ORDERED TO RUPERTO MEADE TOMORROW AT 0600 AND SERIAL URINES AFTER THAT
[2019-06-28 18:43] LABS: BASOPHILS # (AUTO) 0.1 (0.0-0.1); BASOPHILS % 0.4 % (0.0-1.0); EOSINOPHILS # (AUTO) 0.7 (0.0-0.4); EOSINOPHILS % 4.4 % (0.0-6.0); HEMATOCRIT 24.6 % (38.2-49.6); HEMOGLOBIN 7.9 g/dL (14.0-18.0); LYMPHOCYTES # (AUTO) 2.5 (1.0-3.2); LYMPHOCYTES % 16.8 % (18.0-39.1); MEAN CORPUSCULAR HEMOGLOBIN 28.6 pg (28-32); MEAN CORPUSCULAR HGB CONC 32.1 g/dL (31-35); MEAN CORPUSCULAR VOLUME 89.1 fL (81-99); MONOCYTES # (AUTO) 1.5 (0.2-0.8); MONOCYTES % 9.8 % (4.4-11.3); NEUTROPHILS # (AUTO) 9.9 (2.1-6.9); PLATELET COUNT 203 x10e3/uL (140-360); RED BLOOD COUNT 2.76 x10e6/uL (4.3-5.7); RED CELL DISTRIBUTION WIDTH 20.5 % (11.7-14.4)
--- NOTE | 2019-06-28 19:00 | NUR ---
RECEIVED PATIENT IN BEDSIDE SHIFT REPORT. PATIENT RESTING IN BED AT THIS TIME. A&OX3. MEADE DRAINING DARK RED URINE. NO CLOTS NOTED. NO PAIN REPORTED. NO S&S OF DISTRESS NOTED. BED LOCKED IN LOWEST POSITION, SIDE RAILS UPX2, CALL LIGHT IN REACH.
[2019-06-28] MEDS: METOPROLOL TARTRATE 25 MG TAB PO SCH (21:00)
[2019-06-28] MEDS: ATORVASTATIN 10 MG TAB PO SCH (21:18)
[2019-06-29] VITALS (7 sets, daily range): BP systolic 111–127; BP diastolic 51–60
[2019-06-29 05:55] LABS: BASOPHILS % 0.3 % (0.0-1.0); EOSINOPHILS # (AUTO) 0.6 (0.0-0.4); HEMATOCRIT 23.7 % (38.2-49.6); HEMOGLOBIN 7.4 g/dL (14.0-18.0); LYMPHOCYTES # (AUTO) 2.4 (1.0-3.2); MEAN CORPUSCULAR HEMOGLOBIN 28.5 pg (28-32); MEAN CORPUSCULAR HGB CONC 31.2 g/dL (31-35); MEAN CORPUSCULAR VOLUME 91.2 fL (81-99); MONOCYTES # (AUTO) 1.1 (0.2-0.8); MONOCYTES % 9.4 % (4.4-11.3); NEUTROPHILS # (AUTO) 7.1 (2.1-6.9); NEUTROPHILS % 62.5 % (38.7-80.0); PLATELET COUNT 194 x10e3/uL (140-360); RED CELL DISTRIBUTION WIDTH 20.4 % (11.7-14.4)
--- NOTE | 2019-06-29 06:15 | NUR ---
MEADE REMOVED AT THIS TIME. 35 ML SALINE REMOVED FROM BALLOON, CATHETER TIP INTACT. PROVIDED MEATAL CARE. EXPLAINED PROCESS OF SERIAL URINES, PATIENT VERBALIZED UNDERSTANDING. WILL PROVIDE WALKER TO ASSIST PATIENT TO STAND AT BEDSIDE HE STATES HE CANNOT URINATE WHILE LAYING DOWN. TOLD PATIENT TO MAKE SURE TO CALL FOR ASSISTANCE HE HAS BEEN WEAK PREVIOUSLY. PATIENT VERBALIZED UNDERSTANDING. Addendum: 06/29/19 at 0633 by Karlene Cummings RN PATIENT DUE TO VOID BY [id number], 06/29/19.
[2019-06-29 06:25] LABS: ANION GAP 12.8 mmol/L (8-16); CREATININE, SERUM 1.85 mg/dL (0.72-1.25); POTASSIUM 4.8 mmol/L (3.5-5.1)
[2019-06-29] MEDS: OLMESARTAN 20 MG TAB PO SCH (09:00)
[2019-06-29] MEDS: NON-FORMULARY MEDICATION (Biotin 10,000 MCG) PO SCH (09:00)
[2019-06-29] MEDS: FOLIC ACID 1 MG TAB PO SCH (09:22)
[2019-06-29] MEDS: TAMSULOSIN HCL 0.4 MG CAP PO SCH (09:22)
[2019-06-29] MEDS: ALLOPURINOL 300 MG TAB PO SCH (09:22)
[2019-06-29] MEDS: HYDROCHLOROTHIAZIDE 25 MG TAB PO SCH (09:22)
[2019-06-29] MEDS: GABAPENTIN 100 MG CAP PO SCH ×3 (09:22→20:58)
[2019-06-29] MEDS: CHOLECALCIFEROL 1,000 UNIT TAB PO SCH (09:22)
[2019-06-29] MEDS: DIGOXIN 0.125 MG TAB PO SCH (09:22)
--- NOTE | 2019-06-29 14:54 | NUR ---
192CC NOTED ON BLADDER SCANNER S/P RESIDUAL VOID
--- NOTE | 2019-06-29 19:50 | NUR ---
RECEIVED PT IN BED AOX3 DENIES PAIN NOW RESPIRATIONS ARE EVEN AND UNLABORED .LEFT FA 20G S/L.CALL LIGHT WITH IN REACH . TELE SHOWS AFIB CONTINUE TO MONITOR
[2019-06-29] MEDS: ATORVASTATIN 10 MG TAB PO SCH (20:57)
[2019-06-29] MEDS: METOPROLOL TARTRATE 25 MG TAB PO SCH (20:58)
[2019-06-30] VITALS (8 sets, daily range): BP systolic 109–141; BP diastolic 52–63
[2019-06-30 06:42] LABS: BASOPHILS # (AUTO) 0.1 (0.0-0.1); BASOPHILS % 0.5 % (0.0-1.0); EOSINOPHILS # (AUTO) 0.5 (0.0-0.4); HEMATOCRIT 23.9 % (38.2-49.6); HEMOGLOBIN 7.4 g/dL (14.0-18.0); MEAN CORPUSCULAR HEMOGLOBIN 28.5 pg (28-32); MEAN CORPUSCULAR VOLUME 91.9 fL (81-99); MONOCYTES # (AUTO) 0.9 (0.2-0.8); MONOCYTES % 8.5 % (4.4-11.3); NEUTROPHILS # (AUTO) 6.8 (2.1-6.9); NEUTROPHILS % 64.4 % (38.7-80.0); PLATELET COUNT 243 x10e3/uL (140-360); RED CELL DISTRIBUTION WIDTH 20.8 % (11.7-14.4)
--- NOTE | 2019-06-30 07:22 | NUR ---
PT RESTED DURING THE NIGHT .DENIES PAIN . PT HAS BLOODY URINE .BLADDERIN AM SCAN SHOWS 88ML CALL LIGHT WITH IN REACH .CONTINUE TO MONITOR .BEDSIDE REPORT GIVEN TO THE ONCOMING NURSE
[2019-06-30] MEDS: NON-FORMULARY MEDICATION (Biotin 10,000 MCG) PO SCH (09:00)
[2019-06-30] MEDS: OLMESARTAN 20 MG TAB PO SCH (09:00)
[2019-06-30] MEDS: GABAPENTIN 100 MG CAP PO SCH ×3 (10:00→21:09)
[2019-06-30] MEDS: CHOLECALCIFEROL 1,000 UNIT TAB PO SCH (10:00)
[2019-06-30] MEDS: ALLOPURINOL 300 MG TAB PO SCH (10:00)
[2019-06-30] MEDS: TAMSULOSIN HCL 0.4 MG CAP PO SCH (10:00)
[2019-06-30] MEDS: HYDROCHLOROTHIAZIDE 25 MG TAB PO SCH (10:00)
[2019-06-30] MEDS: FOLIC ACID 1 MG TAB PO SCH (10:00)
[2019-06-30] MEDS: DIGOXIN 0.125 MG TAB PO SCH (10:00)
--- NOTE | 2019-06-30 11:00 | NUR ---
SPOKE WITH MD SOLER, MADE AWARE OF PT C/O "NOT BEING ABLE TO GO TO BATHROOM SINCE MEADE REMOVED YESTERDAY, JUST DRIBBLES", AND THAT BLADDER SCANNER WAS [phone], ORDERS NOTED
--- NOTE | 2019-06-30 11:33 | NUR ---
16F sanchez inserted for straight cath. 300ml of dark hematuria noted. patient tolerated well
--- NOTE | 2019-06-30 17:55 | NUR ---
Placed a 18F coude catheter per dr. navarro due to urinary retention. 500ml of dark hematuria removed. Patient tolerated well
--- NOTE | 2019-06-30 18:41 | NUR ---
NO CHANGE IN CONDITION , CALL LIGHT WITHIN REACH
--- NOTE | 2019-06-30 19:57 | NUR ---
RECEIVE DPT IN BED AOX3 RESPIRATIONS ARE EVEN AND UNLABORED PT HAS CUDO CATHETER AND DRAINING BLOODY URINE .DENIES PAIN .FAMILY AT THE BEDSIDE .CALL LIGHT WITH IN REACH .CONTINUE TO MONITOR
[2019-06-30] MEDS: ATORVASTATIN 10 MG TAB PO SCH (21:08)
[2019-06-30] MEDS: METOPROLOL TARTRATE 25 MG TAB PO SCH (21:09)
[2019-07-01] VITALS (7 sets, daily range): BP systolic 99–123; BP diastolic 50–59
--- NOTE | 2019-07-01 07:00 | NUR ---
RECEIVED BEDSIDE SHIFT REPORT FROM JAYCE RN. PT DENIES NEEDS AT THIS TIME.
--- NOTE | 2019-07-01 07:26 | NUR ---
PT RESTED DURING THE NIGHT DENIES PAIN .FAMILY AT THE BEDSIDE CALL LIGHT WITH IN REACH .BEDSIDE REPORT GIVEN TO THE ON COMING NURSE
[2019-07-01] MEDS: NON-FORMULARY MEDICATION (Biotin 10,000 MCG) PO SCH (08:28)
[2019-07-01] MEDS: DIGOXIN 0.125 MG TAB PO SCH (08:29)
[2019-07-01] MEDS: FOLIC ACID 1 MG TAB PO SCH (08:29)
[2019-07-01] MEDS: OLMESARTAN 20 MG TAB PO SCH (08:29)
[2019-07-01] MEDS: TAMSULOSIN HCL 0.4 MG CAP PO SCH (08:29)
[2019-07-01] MEDS: HYDROCHLOROTHIAZIDE 25 MG TAB PO SCH (08:29)
[2019-07-01] MEDS: GABAPENTIN 100 MG CAP PO SCH ×2 (08:30→15:37)
[2019-07-01] MEDS: ALLOPURINOL 300 MG TAB PO SCH (08:30)
[2019-07-01] MEDS: CHOLECALCIFEROL 1,000 UNIT TAB PO SCH (08:30)
--- NOTE | 2019-07-01 18:13 | NUR ---
DISCUSSED CLOTS IRRIGATED THIS AM FROM [facility] WITH DR. SOLER, STATED OK TO DISCHARGE AFTER VISITING WITH THE PT AT THIS TIME.
--- NOTE | 2019-07-01 19:54 | NUR ---
RECEIVED PT IN BED .ORDER TO D/C THE PT HOME .REMOVE THE IV .AND D/C THE TELE .CHANGED THE CATHETER TO LEG BAG .RESPIRATIONS ARE EVEN AND UNLABORED.
--- NOTE | 2019-07-01 20:44 | NUR ---
PT IS DISCHARGED TO HOME .NO CUTE DISTRESS NOTED .
--- NOTE | 2019-08-24 04:07 | Operative Report ---
DATE OF PROCEDURE: 06/26/2019 SURGEON: Baljeet Short MD PREOPERATIVE DIAGNOSIS: Recurrent transitional cell carcinoma of the bladder. POSTOPERATIVE DIAGNOSIS: Recurrent transitional cell carcinoma of the bladder. OPERATIVE PROCEDURE PERFORMED: Cystoscopy and transurethral resection of large bladder tumor. ANESTHESIA: General anesthesia. ESTIMATED BLOOD LOSS: 100 mL. INDICATIONS: Mr. Paolo Aggarwal is an 78-year-old gentleman with a history of recurrent TCC and multiple prior procedures to manage this. His last procedure was approximately 2 months ago. He was known to have remaining tumor noted at that time. Historically, his tumors have all been superficial. PROCEDURE IN DETAIL: The patient was brought into the operating room, placed in supine position. After initiation of general anesthesia, he was placed in dorsal lithotomy position and prepped and draped in usual sterile fashion. Cystourethroscopy was performed using 22-Panamanian cystoscope. Anterior and posterior urethra were noted to be normal. The prostate revealed evidence of prior resection. The bladder was entered with minimal difficulty. Upon entrance into the bladder, approximately 75% to 80% of the bladder mucosa was covered with papillary tumors. These were of varying sizes and occasionally there was intervening normal bladder mucosa noted. The ureteral orifices were difficult to identify because of scarring from prior resection as well as all the tumor that was in the bladder. The bladder was left full and the cystoscope and sheath were removed. An Ferris resectoscope and sheath were then placed in retrograde fashion and this was used to resect all of the visible tumor down to the muscle layers. Patches of normal-looking bladder mucosa were left in situ. Once the more active and larger tumors and confluent tumors were removed, the Bugbee electrode was used to fulgurate a lot of the remaining tumors. There was no gross bleeding noted at the conclusion of the procedure. All the pathologic material removed was sent to Pathology for microscopic analysis. Once adequate hemostasis was secured, the bladder was left full and resectoscope and sheath were removed. A 22-Panamanian 3-way coude catheter was then placed in a retrograde fashion and the balloon inflated with 45 mL of sterile water. The urinary efflux was noted to be blood tinged. The patient was returned to supine position and anesthesia was reversed. He was transferred to the bed and taken to the postanesthesia care unit in good condition. Of note, the needle and instrument count was correct at the conclusion of the case. MD FABIEN Pedro/SANDY /[id number]
--- NOTE | 2019-08-29 03:10 | Discharge Summary ---
ADMITTING DIAGNOSIS: Recurrent transitional cell carcinoma of the bladder. PRINCIPAL FINAL DIAGNOSIS: Recurrent transitional cell carcinoma of the bladder. SECONDARY DIAGNOSES: 1. Postoperative anemia due to hemorrhage. 2. Gout. 3. Coronary artery disease. 4. Hypertension. 5. Hypercholesterolemia. OPERATIVE PROCEDURES PERFORMED: Cystoscopy and transurethral resection of bladder tumor, performed on 06/26/2019. HOSPITAL COURSE: In detail, he was admitted to the hospital, where he underwent resection of multiple large TCCs of the bladder. He was transferred to the recovery room in good condition. He was initially resting comfortably, but his hemoglobin was noted to drift down from his baseline to 6 at hospital day #2. He was therefore transfused 2 units of packed red blood cells, after which his hemoglobin came up to 7.3. He was feeling stronger and ambulating without difficulty. On postoperative day #5, he was afebrile with stable vital signs. His catheter had been removed on postoperative day #4 and then it was replaced due to significant incontinence. His urinary output was good, but there was some dark urine noted presumably from old blood. No clots. He was therefore discharged home with his catheter in place. The plan was for him to follow up in the office in the subsequent week. His discharge medications consisted of his preoperative medications and iron and oral antibiotics. His condition at time of discharge was good. MD FABIEN Pedro/FREDOL /[id number]
== END 2019-07-01 21:00 | disposition home or self-care (01) | DRG 669 ==
LOC: OR 05:25 → PACU V 10:07 → MED/SURG 11:44 → OBSVTOIN 06-27 21:09
PROVIDERS: ADMIT Urology; ATTEND Urology
PROC: 0TBB8ZZ Excision of Bladder, Via Natural or Artificial Opening Endoscopic (ICD-10-PCS; principal; 2019-06-26 08:04)
PROC: 30233N1 Transfusion of Nonautologous Red Blood Cells into Peripheral Vein, Percutaneous Approach (ICD-10-PCS; 2019-06-28)
DX: C67.2 Malignant neoplasm of lateral wall of bladder (principal); D62 Acute posthemorrhagic anemia; I10 Essential (primary) hypertension; E78.00 Pure hypercholesterolemia, unspecified; Z87.442 Personal history of urinary calculi; I48.91 Unspecified atrial fibrillation; I25.10 Atherosclerotic heart disease of native coronary artery without angina pectoris; Z91.048 Other nonmedicinal substance allergy status
CPT/HCPCS: 36415; 80048; 80053; 85025; 86850; 86900; 86920; 88305; G0378; J0696; J1100; J2001; J2250; J2405; J3010; J7050; P9016

== ENCOUNTER 2019-10-30 05:53 | Inpatient (IN) | payer MEDICARE ==
[2019-10-27 14:29] LABS: BASOPHILS # (AUTO) 0.1 (0.0-0.1); BASOPHILS % 0.8 % (0.0-1.0); EOSINOPHILS # (AUTO) 0.2 (0.0-0.4); EOSINOPHILS % 2.2 % (0.0-6.0); HEMATOCRIT 33.4 % (38.2-49.6); HEMOGLOBIN 10.1 g/dL (14.0-18.0); LYMPHOCYTES # (AUTO) 1.6 (1.0-3.2); LYMPHOCYTES % 18.2 % (18.0-39.1); MEAN CORPUSCULAR HEMOGLOBIN 27.4 pg (28-32); MEAN CORPUSCULAR HGB CONC 30.2 g/dL (31-35); MEAN CORPUSCULAR VOLUME 90.5 fL (81-99); MONOCYTES # (AUTO) 0.6 (0.2-0.8); MONOCYTES % 6.7 % (4.4-11.3); NEUTROPHILS # (AUTO) 6.2 (2.1-6.9); NEUTROPHILS % 70.8 % (38.7-80.0); RED BLOOD COUNT 3.69 x10e6/uL (4.3-5.7); RED CELL DISTRIBUTION WIDTH 28.7 % (11.7-14.4)
[2019-10-27 14:46] LABS: ANION GAP 14.3 mmol/L (8-16); CALCIUM 9.5 mg/dL (8.4-10.2); CREATININE, SERUM 1.41 mg/dL (0.72-1.25); POTASSIUM 4.3 mmol/L (3.5-5.1)
[2019-10-27 14:48] LABS: PLATELET COUNT 167 x10e3/uL (140-360)
--- NOTE | 2019-10-27 15:11 | Diagnostic Imaging Report ---
EXAMINATION: CHEST 2 VIEWS INDICATION: Pre-operative COMPARISON: Chest radiograph 11/27/2018 FINDINGS: LINES/TUBES:None LUNGS:The lungs are well-inflated. No focal consolidation or pulmonary edema. PLEURA:No pleural effusion or pneumothorax. MEDIASTINUM:The cardiomediastinal silhouette appears unchanged in size and shape. Atherosclerotic calcifications of the thoracic aorta. BONES/SOFT TISSUES:No acute osseous injury. Sternotomy wires intact. ABDOMEN:No free air under the diaphragm. IMPRESSION: No focal pneumonia or pulmonary edema. Signed by: Dejuan Tracey MD on 10/27/2019 3:09 PM
[~2019-10-30] VITALS: Ht 177.8 cm; Wt 90.7 kg
[2019-10-30] VITALS (7 sets, daily range): BP systolic 71–163; BP diastolic 33–76
[~2019-10-30 05:53] MED LIST changes: +NYSTATIN100000 UNI PO; +TRIAMCINOLONE A15 G1 PO
[2019-10-30] MEDS ORDERED: CEFTRIAXONE SOD 1 GM/NS 50 ML 50 ML IV ONE (06:21)
--- NOTE | 2019-10-30 07:10 | NUR ---
SPIRITUAL CARE - Pre-Surgery Assessment: Pt in bed. Pt's at bedside. Pt reported supportive attention from family and friends. Intervention: I provided pastoral presence, hospitality, and sympathetic listening. I acquainted pt with availability of weight loss centre manager while hospitalized. Outcome: Pt expressed appreciation for visit. No need for follow up indicated at this time. RUIZ [facility] Spiritual Care Department O: [phone] Pager: [phone] ([phone] number calling from)
[2019-10-30] MEDS ORDERED: IOPAMIDOL 300MG/ML 50ML INFUS..BTL IV ONE (08:11)
[2019-10-30] MEDS ORDERED: ACETAMINOPHEN/CODEINE 300MG - 30MG TAB PO PRN ×3 (13:00→13:01)
[2019-10-30 13:18] LABS: BASOPHILS % 0.4 % (0.0-1.0); EOSINOPHILS # (AUTO) 0.1 (0.0-0.4); EOSINOPHILS % 0.5 % (0.0-6.0); HEMATOCRIT 32.3 % (38.2-49.6); LYMPHOCYTES # (AUTO) 0.9 (1.0-3.2); MEAN CORPUSCULAR HEMOGLOBIN 27.9 pg (28-32); MEAN CORPUSCULAR VOLUME 90.2 fL (81-99); MONOCYTES # (AUTO) 0.3 (0.2-0.8); MONOCYTES % 2.6 % (4.4-11.3); NEUTROPHILS # (AUTO) 8.4 (2.1-6.9); NEUTROPHILS % 86.1 % (38.7-80.0); PLATELET COUNT 146 x10e3/uL (140-360); RED BLOOD COUNT 3.58 x10e6/uL (4.3-5.7); RED CELL DISTRIBUTION WIDTH 28.7 % (11.7-14.4)
[2019-10-30] MEDS ORDERED: TRIAMCINOLONE ACET 0.1% CREAM 15 GM TUBE TOP PRN (13:30)
[2019-10-30] MEDS ORDERED: NYSTATIN SUSPENSION 5 ML UDC PO PRN (13:30)
[2019-10-30] MEDS ORDERED: LORATADINE 10 MG TAB PO PRN (13:30)
[2019-10-30 13:35] LABS: ALBUMIN 3.5 g/dL (3.5-5.0); ALBUMIN/GLOBULIN RATIO 1.3 (0.8-2.0); ANION GAP 13.9 mmol/L (8-16); CALCIUM 9.1 mg/dL (8.4-10.2); CREATININE, SERUM 1.53 mg/dL (0.72-1.25); POTASSIUM 4.9 mmol/L (3.5-5.1)
[2019-10-30] MEDS: DEXTROSE 5%/0.45% SOD CHL 1,000 ML IV SCH ×2 (14:14→23:26)
--- NOTE | 2019-10-30 14:40 | NUR ---
patient returned from OR via stretcher. see admit assess. [address] with lauren red bloody drainage and irrigation flowing wide open. will draw HH at 1600 and evaluate future moves at that time. vitals stable at this time.
[2019-10-30] MEDS ORDERED: SODIUM CHLORIDE 0.9% 250ML 250 ML IV ONE (14:45)
[2019-10-30] MEDS: GABAPENTIN 100 MG CAP PO SCH ×2 (15:00→21:44)
--- NOTE | 2019-10-30 15:44 | NUR ---
Patient BP dropping to 80/40. Dr Short called and patient to be transferred to ICU. awaiting a bed.
[2019-10-30] MEDS ORDERED: SODIUM CHLORIDE 0.9% 1000ML 1,000 ML ONE (15:51)
--- NOTE | 2019-10-30 15:53 | NUR ---
Nurse in room to verify blood bank type and screen. BP noted to be re checking and noted at 71/34, 70. Patient lowered into trendelenburg. Patient is awake and responsive. Blood noted in sanchez bag from procedure. MD was made aware of condition and will be transferrin to ICU
[2019-10-30 16:12] LABS: HEMATOCRIT 26.5 % (38.2-49.6); HEMOGLOBIN 8.2 g/dL (14.0-18.0)
[2019-10-30 16:20] LABS: ANISOCYTOSIS SLIG; HYPOCHROMASIA SLIGHT; POIKILOCYTOSIS SLIG; RBC MORPHOLOGY COMMENT NORMAL
[2019-10-30 16:21] LABS: PLATELET ESTIMATE SLIGHTLY DECREASED; PLATELET MORPHOLOGY COMMENT FEW LARGE
[2019-10-30] MEDS ORDERED: NOREPINEPHRINE 8 MG/D5W 250 ML 250 ML ONE (16:33)
[2019-10-30] MEDS: NOREPINEPHRINE INJ 4MG/4ML 8 MG in DEXTROSE 5% 250ML 250 ML IV SCH (16:45)
--- NOTE | 2019-10-30 16:46 | NUR ---
patient transferred to ICU room 189. report given to Sandoval DENISE. Dr Zapien consulted for critical care. BP low and levophed started by ICU staff. consent for central line insertion and transfusion of blood products signed.
[2019-10-30] MEDS: CIPROFLOXACIN 500 MG TAB PO SCH (17:00)
--- NOTE | 2019-10-30 18:04 | Diagnostic Imaging Report ---
EXAM: CHEST XRAY LINE PLACEMENT DATE: 10/30/2019 5:36 PM INDICATION: ^CENTRAL LINE PLACEMENT COMPARISON: Chest x-ray, 10/27/2019 FINDINGS: Lines and tubes: Right IJ central catheter with the tip extending to the upper SVC. Cardiac silhouette remains enlarged. Wire sternotomy sutures are again noted. No focal pulmonary opacity, pleural effusion or pneumothorax. The region of the right costophrenic angle was not included on the images for evaluation. Upper abdomen unremarkable. No acute bony abnormality. IMPRESSION: 1. Cardiomegaly with no pneumothorax or pleural effusion. 2. Interval placement of right IJ central venous catheter. Signed by: Dr. Gabo Pisano M.D. on 10/30/2019 6:01 PM
[2019-10-30] MEDS ORDERED: DEXAMETHASONE SOD PHOS INJ 4 MG/ML VIAL ONE (18:40)
[2019-10-30] MEDS ORDERED: ONDANSETRON HCL INJ 2MG/ML 2ML 2 MG/ML VIAL ONE (18:40)
[2019-10-30] MEDS ORDERED: PROPOFOL IV EMULSION 10 MG/ML 20 ML VIAL ONE (18:40)
[2019-10-30] MEDS ORDERED: SEVOFLURANE INHAL SOLN 250 ML PEN BTL ONE (18:40)
[2019-10-30] MEDS ORDERED: LIDOCAINE HCL 2% LOCAL INJ 5 ML SDV VIAL INJ ONE (18:40)
[2019-10-30] MEDS ORDERED: EPHEDRINE SULFATE INJ 50 MG/ML VIAL ONE (18:40)
--- NOTE | 2019-10-30 19:00 | NUR ---
Bedside report received from Sandoval Parnell RN. Pt received resting in bed with eyes closed, responded to voice, Ox4, room air with no distress noted, pt reports "no" when asked if he is in pain and responded he has only "a little discomfort" in his lower pelvis/bladder area - the irrigation is wide open (per report per Dr. Short orders) and is draining bright red with no visable clots at this time. Pt is received first of 2 units of PRBCs per report per Dr. Short orders. Pt is also on Levophed.
[2019-10-30] MEDS: METOPROLOL TARTRATE 25 MG TAB PO SCH (21:00)
[2019-10-30] MEDS ORDERED: CHOLECALCIFEROL 2000 MG PO SCH (21:00)
[2019-10-30] MEDS ORDERED: SODIUM CHLORIDE 0.9% 250ML 250 ML ONE (21:21)
[2019-10-30] MEDS: ATORVASTATIN 10 MG TAB PO SCH (21:44)
[2019-10-30] MEDS: CHOLECALCIFEROL 1,000 UNIT TAB PO SCH (21:44)
--- NOTE | 2019-10-30 23:23 | Operative Report ---
DATE OF PROCEDURE: 11/04/2019 SURGEON: Homer Zapien MD PROCEDURE: Central line placement under ultrasound guidance. PREOPERATIVE DIAGNOSIS: Transitional cell carcinoma of the bladder. POSTOPERATIVE DIAGNOSIS: Transitional cell carcinoma of the bladder. CONSENT: Consent was obtained from the patient. ANESTHESIA: 1% lidocaine was used for local anesthesia. PROCEDURE IN DETAIL: The patient was prepped sterilely in the right neck. A full-length sterile gown as well as masks and sterile gloves were used. Ultrasound machine was used to locate the right internal jugular vein. The right internal jugular vein was cannulated under direct visualization with a 16-gauge needle. A wire was then passed through the needle. The dilator was used to dilate the skin and a triple-lumen catheter was placed over the wire by the Seldinger technique. All the ports flushed. COMPLICATIONS: None. ESTIMATED BLOOD LOSS: None. Homer Zapien MD [facility]/MODL /[id number]
--- NOTE | 2019-10-30 23:33 | Consultation ---
DATE OF CONSULTATION: 11/28/2019 Pulmonary Critical Care Consultation CHIEF COMPLAINT: Anemia from acute blood loss and low blood pressure. HISTORY OF PRESENT ILLNESS: The patient is an 79-year-old man. He has a history of prior coronary artery bypass grafting in 2011. He has atrial fibrillation and hypertension. He also has a history of transitional cell carcinoma of the bladder. He required a transurethral cystoscopy and resection of tumors twice last year. He presented again for removal of additional transitional cell carcinoma. Postoperatively, he had some hematuria. His blood pressure was low and he required observation in the intensive care unit. He was started on low-dose Levophed and is receiving intravenous fluids. PAST SURGICAL HISTORY: 1. Status post coronary artery bypass grafting. 2. Status post nephrectomy. 3. Status post cholecystectomy. 4. Status post transurethral bladder tumor resection. PAST MEDICAL HISTORY: 1. Atrial fibrillation. 2. Hypertension. 3. Prior history of renal cell carcinoma. SOCIAL HISTORY: The patient is not a smoker or drinker. ALLERGIES: THE PATIENT IS ALLERGIC TO ADHESIVE TAPE. FAMILY HISTORY: Family history is noncontributory. REVIEW OF SYSTEMS: The patient is afebrile. Having no headache. There is no sore throat. Does not have chest pain. There is no difficulty breathing. There is no abdominal pain. He has no nausea or vomiting. He does have some hematuria. PHYSICAL EXAMINATION: VITAL SIGNS: The patient is afebrile. The blood pressure is now 102/50, on Levophed at 5 mcg. His pulse is 70. HEENT: Shows no facial swelling or erythema. There is a right IJ line in place. The site looks clean. There is no drainage. CARDIAC: Reveals a regular rate and rhythm with normal S1, S2. LUNGS: Auscultation of lungs reveals clear breath sounds bilaterally. There is no wheezing. ABDOMEN: Soft, nontender. There is no rebound or guarding. EXTREMITIES: Show no leg edema or calf tenderness. There is no cyanosis, clubbing. SKIN: Shows no rashes. NEUROLOGICAL: Shows no focal abnormalities. LABORATORY DATA: Sodium is 137 and chloride is 104. The BUN to creatinine ratio is 30 to 1.53. Hemoglobin is 8.2 and the platelet count is 146. White blood cell count is normal. RADIOGRAPHIC DATA: Chest x-ray from the shows no acute disease. IMPRESSION: 1. Anemia secondary to acute blood loss. 2. Transitional cell carcinoma of the bladder. 3. Hypovolemia. 4. Coronary artery disease. 5. Paroxysmal atrial fibrillation. PLAN: 1. The patient will receive intravenous fluids. 2. Type and cross and transfuse as needed. 3. Wean Levophed. 4. Continue to irrigate the bladder and monitor Cartagena output. MD MIRELLA Meraz/FREDOL /[id number]
[2019-10-31] VITALS (44 sets, daily range): BP systolic 80–163; BP diastolic 26–69
[2019-10-31] MEDS: SODIUM CHLORIDE 0.9% 1000ML 1,000 ML IV SCH ×2 (03:30→13:22)
[2019-10-31 04:31] LABS: BASOPHILS # (AUTO) 0.1 (0.0-0.1); BASOPHILS % 0.5 % (0.0-1.0); HEMOGLOBIN 8.5 g/dL (14.0-18.0); LYMPHOCYTES # (AUTO) 1.9 (1.0-3.2); LYMPHOCYTES % 7.6 % (18.0-39.1); MEAN CORPUSCULAR HEMOGLOBIN 28.7 pg (28-32); MEAN CORPUSCULAR HGB CONC 31.5 g/dL (31-35); MEAN CORPUSCULAR VOLUME 91.2 fL (81-99); NEUTROPHILS # (AUTO) 20.3 (2.1-6.9); NEUTROPHILS % 80.8 % (38.7-80.0); PLATELET COUNT 206 x10e3/uL (140-360); RED BLOOD COUNT 2.96 x10e6/uL (4.3-5.7); RED CELL DISTRIBUTION WIDTH 23.7 % (11.7-14.4)
[2019-10-31 04:50] LABS: ALBUMIN 2.8 g/dL (3.5-5.0); ALBUMIN/GLOBULIN RATIO 1.4 (0.8-2.0); ANION GAP 12.6 mmol/L (8-16); CALCIUM 7.9 mg/dL (8.4-10.2); POTASSIUM 5.6 mmol/L (3.5-5.1)
[2019-10-31 04:53] LABS: CREATININE, SERUM 2.62 mg/dL (0.72-1.25)
--- NOTE | 2019-10-31 06:40 | NUR ---
present and assessing the pt. New order to repeat H&H at noon today, no further orders at this time.
[2019-10-31] MEDS: DEXTROSE 5%/0.45% SOD CHL 1,000 ML IV SCH (08:22)
[2019-10-31] MEDS: GABAPENTIN 100 MG CAP PO SCH ×3 (08:23→21:46)
[2019-10-31] MEDS: FOLIC ACID 1 MG TAB PO SCH (08:23)
[2019-10-31] MEDS: CIPROFLOXACIN 500 MG TAB PO SCH ×2 (08:23→17:51)
[2019-10-31] MEDS: TAMSULOSIN HCL 0.4 MG CAP PO SCH (08:23)
[2019-10-31] MEDS: DIGOXIN 0.125 MG TAB PO SCH (08:24)
[2019-10-31] MEDS: ALLOPURINOL 300 MG TAB PO SCH (08:24)
[2019-10-31] MEDS: (Biotin 10,000 MCG) PO SCH (08:32)
[2019-10-31] MEDS ORDERED: OLMESARTAN 20 MG TAB PO SCH (09:00)
[2019-10-31] MEDS ORDERED: SOD POLYSTYRENE SULFONATE SUSP 15 GM/60 ML BTL PO ONE (09:00)
[2019-10-31] MEDS ORDERED: VANCOMYCIN 1GM/NS 250 ML 250 ML IV ONE (09:30)
[2019-10-31] MEDS: CEFEPIME 1GM/NS 0.9% 50 ML 50 ML IV SCH ×2 (09:37→20:35)
[2019-10-31 12:23] LABS: BASOPHILS # (AUTO) 0.1 (0.0-0.1); BASOPHILS % 0.5 % (0.0-1.0); EOSINOPHILS # (AUTO) 0.1 (0.0-0.4); EOSINOPHILS % 0.3 % (0.0-6.0); HEMATOCRIT 22.1 % (38.2-49.6); HEMOGLOBIN 7.1 g/dL (14.0-18.0); LYMPHOCYTES # (AUTO) 2.6 (1.0-3.2); LYMPHOCYTES % 13.1 % (18.0-39.1); MEAN CORPUSCULAR HEMOGLOBIN 29.7 pg (28-32); MEAN CORPUSCULAR HGB CONC 32.1 g/dL (31-35); MEAN CORPUSCULAR VOLUME 92.5 fL (81-99); MONOCYTES # (AUTO) 1.9 (0.2-0.8); MONOCYTES % 9.8 % (4.4-11.3); NEUTROPHILS # (AUTO) 14.3 (2.1-6.9); NEUTROPHILS % 73.4 % (38.7-80.0); PLATELET COUNT 154 x10e3/uL (140-360); RED BLOOD COUNT 2.39 x10e6/uL (4.3-5.7); RED CELL DISTRIBUTION WIDTH 23.9 % (11.7-14.4)
[2019-10-31] MEDS ORDERED: SODIUM CHLORIDE 0.9% 250ML 250 ML IV ONE (15:15)
[2019-10-31] MEDS ORDERED: ONDANSETRON HCL INJ 2MG/ML 2ML 2 MG/ML VIAL IV PRN (15:15)
[2019-10-31] MEDS ORDERED: ACETAMINOPHEN 325 MG TAB PO ONE (15:30)
[2019-10-31 16:05] LABS: ANION GAP 10.6 mmol/L (8-16); CALCIUM 7.7 mg/dL (8.4-10.2); CREATININE, SERUM 3.67 mg/dL (0.72-1.25); POTASSIUM 4.6 mmol/L (3.5-5.1)
[2019-10-31] MEDS: NOREPINEPHRINE INJ 4MG/4ML 8 MG in DEXTROSE 5% 250ML 250 ML IV SCH ×4 (16:45→23:45)
--- NOTE | 2019-10-31 18:08 | Progress Note ---
DATE: 10/31/2019 SUBJECTIVE: The patient remains on Levophed. He received 2 units of packed red blood cells yesterday and some intravenous fluid. He still has some hematuria and is receiving bladder irrigation. This morning, he had an elevated potassium of 5.6, and received Kayexalate 30 g. His creatinine was also mildly increased. He was evaluated by Nephrology. PHYSICAL EXAMINATION: VITAL SIGNS: The patient is afebrile. The blood pressure is 98/45 on 5 mcg of Levophed. The pulse is 75. HEENT: Shows no facial swelling or erythema. CARDIAC: Reveals regular rate and rhythm with normal S1 and S2. LUNGS: Auscultation of lungs shows clear breath sounds bilaterally. There is no wheezing. ABDOMEN: Soft, nontender. There is no rebound or guarding. There is a three way Cartagena in place with bladder irrigation. EXTREMITIES: There is no leg edema. LABORATORY DATA: White blood cell count is 19.45 and hemoglobin is 7.1. The platelet count is 154. The BUN to creatinine ratio is 39 to 2.62. The other electrolytes significant for a carbon dioxide of 21 and a potassium of 5.6. IMPRESSION: 1. Anemia secondary to acute blood loss with ongoing hematuria. 2. Hypovolemia. 3. Acute kidney injury. 4. Transitional cell carcinoma of the bladder. 5. Paroxysmal atrial fibrillation. PLAN: 1. The patient will receive an additional unit of packed red blood cells. 2. Wean Levophed as tolerated. 3. Continue to monitor electrolytes and renal function. 4. Continue bladder irrigation. 5. The patient has been pancultured and received one dose of vancomycin along with cefepime. 6. Greater than 35 minutes in direct critical care time. Homer Zapien MD [facility]/MODL /[id number]
--- NOTE | 2019-10-31 18:15 | NUR ---
Dr. Bib Zapien aware of pt's AM labs (see Mar for med orders). Dr. Corbin notified of new consult. Pt had one episode of nausea and vomiting right after eating lunch, but stated is feeling better now after vomiting. Orders given to recheck BMP at 1600. Dr. Bib Zapien notified of episode of nausea/vomiting. Dr. Short and Bib Zapien notified of pt's CBC results. [address] Corbin notified of BMP results. Pt denies any s/s of transfusion reaction, pt premedicated with Tylenol. Will continue to monitor the patient.
--- NOTE | 2019-10-31 19:28 | Consultation ---
DATE OF CONSULTATION: 10/31/2019 Renal Consultation REASON FOR CONSULTATION: Acute kidney injury and hyperkalemia. HISTORY OF PRESENT ILLNESS: An 79-year-old male with a history of chronic kidney disease and transitional cell carcinoma, who was admitted on 10/31/2019 for cystoscopy, bladder biopsy, and transurethral resection of bladder tumors. The patient underwent procedure without complication and postoperatively was noted to have worsening kidney function and hyperkalemia. Nephrology consultation was called. The patient not following his diet, had some [employer] for lunch. Denies ever seeing history of kidney specialist in the past, but after his nephrectomy was told that his kidney numbers were elevated. REVIEW OF SYSTEMS: A 12-point review of systems completed. All systems negative other than mentioned in the HPI above. PAST MEDICAL HISTORY: 1. Transitional cell carcinoma has been getting multiple tumor resections over the past few years. 2. Chronic kidney disease. 3. Hypertension. 4. Anemia. 5. Dyslipidemia. PAST SURGICAL HISTORY: 1. Nephrectomy, right side. 2. CABG, three vessel. 3. Multiple cystoscopies as above. SOCIAL HISTORY: Quit tobacco in 1969. No alcohol. No IV drugs. FAMILY HISTORY: No family history of kidney disease. ALLERGIES: NO KNOWN DRUG ALLERGIES. CURRENT MEDICATIONS: See list includes olmesartan. PHYSICAL EXAMINATION: VITAL SIGNS: Blood pressure 80/27 to 102/36, pulse 70-85, respiratory rate 19, and temperature 97.4. GENERAL: No apparent distress. HEENT: Oropharynx clear. No scleral icterus. No peripheral edema. NECK: Supple. No elevation of jugular venous pressure. No lymphadenopathy. CHEST: Clear to auscultation anteriorly with decreased breath sounds at bases. CARDIOVASCULAR: Regular rhythm. No murmurs, rubs, or gallops. ABDOMEN: Soft. Positive bowel sounds. No tenderness. No rebound. EXTREMITIES: No edema. No clubbing. No cyanosis. : Cartagena catheter with gross hematuria. LABORATORY DATA: Sodium 132, potassium 5.6, chloride 104, CO2 21, BUN 39, creatinine 2.62, baseline creatinine 1.41, glucose 214, and albumin 2.8. White count 19, hemoglobin 7.1, hematocrit 22.1, and platelets 154. Chest x-ray clear. ASSESSMENT AND PLAN: 1. Acute kidney injury on stage III chronic kidney disease, suspect due to arterial underfilling. May have a component of acute tubular necrosis. We will continue with IV fluids. We will hold on losartan and avoid all nephrotoxic medications. We will not check urine studies at this time due to gross hematuria. 2. Hyperkalemia. We will place on renal diet. Kayexalate given. Continue with normal saline. May give one dose of Lasix if potassium is still elevated. 3. Euvolemic to dry on exam. IV fluids as above. 4. Transitional cell carcinoma, status post cystoscopy and tumor resection per Urology. 5. Hypertension. Blood pressure currently on the low side. We will discontinue irbesartan as above. 6. Diabetes per primary team. 7. Anemia. Transfuse for hemoglobin less than seven. MD KULWANT Hong/SANDY /[id number]
[2019-10-31] MEDS: METOPROLOL TARTRATE 25 MG TAB PO SCH (20:51)
[2019-10-31] MEDS: ATORVASTATIN 10 MG TAB PO SCH (21:46)
[2019-10-31] MEDS: CHOLECALCIFEROL 1,000 UNIT TAB PO SCH (21:46)
[2019-11-01] VITALS (47 sets, daily range): BP systolic 84–134; BP diastolic 26–104
[2019-11-01] MEDS ORDERED: NITROGLYCERIN 0.4 MG SUBL SL ONE (02:45)
--- NOTE | 2019-11-01 03:26 | Diagnostic Imaging Report ---
EXAMINATION: CHEST SINGLE (PORTABLE) COMPARISON: Chest x-ray 10/30/2019 INDICATION: ^CHEST PAIN ^20191101 ^0308 DISCUSSION: Frontal view of the chest obtained at 0307 hours. HEART AND MEDIASTINUM: Stable cardiomegaly and cardiac bypass changes LINES: Right IJ catheter terminates in the SVC. LUNGS: Increasing airspace opacity in the right lung base over the diaphragm. Left lung is clear. PLEURA: No pleural effusion or pneumothorax. BONES AND SOFT TISSUES: Median sternotomy wires are intact. The soft tissues are normal. IMPRESSION: Right basilar airspace opacity may represent atelectasis or infiltrate. Stable cardiomegaly. Signed by: Dr. Yoana Laureano MD on 11/01/2019 3:24 AM
--- NOTE | 2019-11-01 03:48 | NUR ---
0245- Pt c/o aching, persistant pain (denies pressure, tightness, squeezing, heavy pain) between shoulder blades/back that radiated to chest, lasting around 30-45 minutes. Pt states it was "similar to his angina pain before CABG". EKG done. Notified Dr. Zapien of EKG results and pt condition- New orders received. 0300-Pt reports relief of pain with position change. Pt no longer complains of back or chest pain.
[2019-11-01 04:12] LABS: CREATINE KINASE MB 4.8 ng/mL (0-5.0)
[2019-11-01 05:12] LABS: BASOPHILS # (AUTO) 0.1 (0.0-0.1); BASOPHILS % 0.4 % (0.0-1.0); EOSINOPHILS # (AUTO) 0.4 (0.0-0.4); EOSINOPHILS % 2.4 % (0.0-6.0); HEMATOCRIT 21.5 % (38.2-49.6); LYMPHOCYTES # (AUTO) 2.4 (1.0-3.2); LYMPHOCYTES % 15.4 % (18.0-39.1); MEAN CORPUSCULAR HEMOGLOBIN 29.3 pg (28-32); MEAN CORPUSCULAR HGB CONC 31.2 g/dL (31-35); MEAN CORPUSCULAR VOLUME 93.9 fL (81-99); MONOCYTES # (AUTO) 1.3 (0.2-0.8); MONOCYTES % 8.1 % (4.4-11.3); NEUTROPHILS # (AUTO) 11.2 (2.1-6.9); NEUTROPHILS % 71.9 % (38.7-80.0); PLATELET COUNT 127 x10e3/uL (140-360); RED BLOOD COUNT 2.29 x10e6/uL (4.3-5.7); RED CELL DISTRIBUTION WIDTH 22.4 % (11.7-14.4)
[2019-11-01 05:17] LABS: HEMOGLOBIN 6.7 g/dL (14.0-18.0)
[2019-11-01 05:30] LABS: MAGNESIUM 1.6 MG/DL (1.3-2.1); PHOSPHORUS 5.1 MG/DL (2.3-4.7)
[2019-11-01 06:02] LABS: ALBUMIN 2.4 g/dL (3.5-5.0); ALBUMIN/GLOBULIN RATIO 1.3 (0.8-2.0); ANION GAP 12.6 mmol/L (8-16); CALCIUM 7.6 mg/dL (8.4-10.2); CREATININE, SERUM 3.23 mg/dL (0.72-1.25); POTASSIUM 4.6 mmol/L (3.5-5.1)
--- NOTE | 2019-11-01 06:22 | NUR ---
Spoke with Dr. Brown regarding new consult for Dr. Beltran BROOKS updated on pt condition and cardiac lab results. Dr. Zapien notified of critical Hgb, CXR results, and current pt condition- new orders received.
[2019-11-01] MEDS ORDERED: SODIUM CHLORIDE 0.9% 250ML 250 ML IV ONE (06:30)
--- NOTE | 2019-11-01 08:20 | Progress Note ---
DATE: 11/01/2019 SUBJECTIVE: The patient had some chest pain last night. He required an EKG and a chest x-ray. Cardiology was consulted. His hemoglobin is 6.7 this morning and he is receiving an additional unit of packed red blood cells. He remains on low-dose Levophed. PHYSICAL EXAMINATION: VITAL SIGNS: The patient is afebrile. The blood pressure is 114/37, the saturation is 100%, and the pulse is 67. HEENT: Shows no facial swelling or erythema. There is a right-sided IJ line in good position. The site looks clean. There is no drainage. CARDIAC: Reveals a regular rate and rhythm with normal S1 and S2. LUNGS: Auscultation of lungs reveal clear breath sounds bilaterally. There is no wheezing. ABDOMEN: Soft and nontender. There is no rebound or guarding. EXTREMITIES: There is no leg edema or calf tenderness. There is no cyanosis or clubbing. SKIN: Shows no rashes. NEUROLOGICAL: Shows no focal abnormalities. LABORATORY AND RADIOGRAPHIC DATA: White blood cell count is 15.6 and hemoglobin is 6.7. The platelet count is 127. The BUN to creatinine ratio is 49 to 3.23. The carbon dioxide is 21. The other electrolytes are within normal limits. Radiographic data shows right bibasilar opacity and some mild cardiomegaly. IMPRESSION: 1. Anemia secondary to acute blood loss with ongoing hematuria. 2. Hypotension related to hypovolemia. 3. Acute kidney injury. 4. Transitional cell carcinoma of the bladder. 5. Chest pain. 6. Paroxysmal atrial fibrillation. PLAN: 1. The patient will receive additional packed red blood cells. 2. Wean Levophed. 3. Await troponins and Cardiology evaluation. 4. Continue to monitor creatinine and renal function. Nephrology is being consulted. 5. Continue bladder irrigation. 6. Continue cefepime and Zithromax for now and monitor white blood cell count. 7. Await culture results. 8. Case discussed with the patient, nursing staff, and Dr. Schmitt of Nephrology. Greater than 35 minutes in direct critical care time. MD MIRELLA Meraz/SANDY /[id number]
[2019-11-01] MEDS: TAMSULOSIN HCL 0.4 MG CAP PO SCH (08:35)
[2019-11-01] MEDS: CIPROFLOXACIN 500 MG TAB PO SCH ×2 (08:35→16:12)
[2019-11-01] MEDS: GABAPENTIN 100 MG CAP PO SCH ×3 (08:36→21:05)
[2019-11-01] MEDS: (Biotin 10,000 MCG) PO SCH ×2 (08:36→08:39)
[2019-11-01] MEDS: DIGOXIN 0.125 MG TAB PO SCH (08:36)
[2019-11-01] MEDS: FOLIC ACID 1 MG TAB PO SCH (08:36)
[2019-11-01] MEDS: ALLOPURINOL 300 MG TAB PO SCH (08:37)
[2019-11-01] MEDS: SODIUM CHLORIDE 0.9% 1000ML 1,000 ML IV SCH (09:00)
[2019-11-01 13:00] LABS: BASOPHILS # (AUTO) 0.1 (0.0-0.1); BASOPHILS % 0.4 % (0.0-1.0); EOSINOPHILS # (AUTO) 0.5 (0.0-0.4); EOSINOPHILS % 3.4 % (0.0-6.0); HEMOGLOBIN 8.1 g/dL (14.0-18.0); LYMPHOCYTES # (AUTO) 2.5 (1.0-3.2); LYMPHOCYTES % 18.1 % (18.0-39.1); MEAN CORPUSCULAR HEMOGLOBIN 30.3 pg (28-32); MEAN CORPUSCULAR HGB CONC 32.4 g/dL (31-35); MEAN CORPUSCULAR VOLUME 93.6 fL (81-99); MONOCYTES % 7.1 % (4.4-11.3); NEUTROPHILS # (AUTO) 9.5 (2.1-6.9); NEUTROPHILS % 69.4 % (38.7-80.0); PLATELET COUNT 132 x10e3/uL (140-360); RED BLOOD COUNT 2.67 x10e6/uL (4.3-5.7); RED CELL DISTRIBUTION WIDTH 20.5 % (11.7-14.4)
[2019-11-01 13:32] LABS: CREATINE KINASE MB 4.2 ng/mL (0-5.0)
[2019-11-01] MEDS: CEFEPIME 1GM/NS 0.9% 50 ML 50 ML IV SCH ×2 (13:59→21:04)
[2019-11-01] MEDS: AZITHROMYCIN 500MG/NS 250 ML 250 ML IV SCH (13:59)
--- NOTE | 2019-11-01 16:57 | Consultation ---
DATE OF CONSULTATION: 11/01/2019 Cardiology Consultation Note REASON FOR CONSULT: Chest pain. HISTORY OF PRESENT ILLNESS: The patient is an 79-year-old gentleman with a history of coronary artery disease status post three-vessel CABG in 2011, atrial fibrillation, hypertension, transitional cell carcinoma of the bladder, and chronic anemia, who was admitted for persistent hematuria. The patient underwent cystoscopy during this admission and tolerated the procedure well. However, he was noted to have significant hematuria yesterday along with a significant drop in hemoglobin requiring 4 units of blood transfusion. This morning, the nursing staff reports that the patient had marginal blood pressure readings and complained of mild retrosternal chest pain. The patient has been receiving fluid resuscitation. His blood pressure has improved and the patient states that his chest pain has completely resolved. The patient was worried about his symptoms because he reports that the chest pain he felt earlier in the day was similar to the angina he felt prior to his bypass in 2011. However at this time, the patient says his symptoms have completely resolved and he no longer feels chest pain and he also denies the presence of shortness of breath, palpitations, or lower extremity swelling. PAST SURGICAL HISTORY: 1. Three-vessel coronary artery bypass in 2011. 2. Status post nephrectomy. 3. Status post cholecystectomy. 4. Status post transurethral bladder tumor resection. PAST MEDICAL HISTORY: 1. Coronary artery disease status post three vessel CABG in 2011. 2. Atrial fibrillation. 3. Prior history of renal cell carcinoma. 4. History of transitional cell carcinoma of the bladder. 5. Hypertension. SOCIAL HISTORY: The patient is a former smoker who quit 50 years ago. FAMILY HISTORY: Noncontributory. ALLERGIES: ADHESIVE TAPE. REVIEW OF SYSTEMS: A 14-point review of system is negative other than the symptoms reported in history of present illness noted above. PHYSICAL EXAMINATION: VITAL SIGNS: Temperature is 97.0, heart rate 53, blood pressure is 106/42, respirations 18, and O2 saturation 100% on room air. GENERAL: No acute distress. Pleasant, alert, orient x3. HEENT: Normocephalic, atraumatic. Right IJ line is in place. CARDIAC: Bradycardic and regular with normal S1 and S2. LUNGS: Clear to auscultation bilaterally. No wheeze. ABDOMEN: Soft, nontender. No rebound or guarding. EXTREMITIES: No lower extremity edema. No clubbing or cyanosis. SKIN: Dry and intact with no rashes. NEUROLOGIC: No focal deficits. LABORATORY DATA: Potassium is 4.6, magnesium is 1.6. Hemoglobin is 6.7, white blood cell count is 15, and platelet count is 127. Troponin was 0.07. ASSESSMENT: An 79-year-old man admitted for the following. 1. Hematuria. 2. Atypical chest pain. 3. Chronic anemia. 4. Transitional cell carcinoma of the bladder. 5. Coronary artery disease. 6. Paroxysmal atrial fibrillation. RECOMMENDATIONS: The patient's atypical chest pain symptoms, most likely due to anemia and hypovolemia. Continue IV fluids and supportive care. The patient is now status post 4 units of PRBCs. Continue to monitor hemoglobin, hematocrit, and transfuse as needed. Continue supportive care per Urology. Recommend conservative management from a cardiac standpoint for the patient at this time. We will check one additional set of troponins to ensure no evidence of acute coronary syndrome, however, likelihood is very low. Recommend to replete magnesium and to continue to monitor electrolytes. We will obtain EKG and echocardiogram and continue to follow the patient closely with you. Thank you for this consult. MD ANALIA Navas/MODBib /[id number] cc: Aman Valdes MD
[2019-11-01 20:12] LABS: CREATINE KINASE MB 3.7 ng/mL (0-5.0)
[2019-11-01] MEDS: METOPROLOL TARTRATE 25 MG TAB PO SCH (21:00)
[2019-11-01] MEDS: ATORVASTATIN 10 MG TAB PO SCH (21:04)
[2019-11-01] MEDS: CHOLECALCIFEROL 1,000 UNIT TAB PO SCH (21:05)
[2019-11-02] VITALS (25 sets, daily range): BP systolic 96–167; BP diastolic 36–102
[2019-11-02 05:07] LABS: BASOPHILS % 0.3 % (0.0-1.0); EOSINOPHILS # (AUTO) 0.4 (0.0-0.4); EOSINOPHILS % 2.7 % (0.0-6.0); HEMATOCRIT 24.9 % (38.2-49.6); HEMOGLOBIN 7.8 g/dL (14.0-18.0); LYMPHOCYTES # (AUTO) 2.5 (1.0-3.2); LYMPHOCYTES % 17.7 % (18.0-39.1); MEAN CORPUSCULAR HEMOGLOBIN 30.4 pg (28-32); MEAN CORPUSCULAR HGB CONC 31.3 g/dL (31-35); MONOCYTES # (AUTO) 1.4 (0.2-0.8); MONOCYTES % 9.8 % (4.4-11.3); NEUTROPHILS # (AUTO) 9.4 (2.1-6.9); NEUTROPHILS % 67.8 % (38.7-80.0); PLATELET COUNT 143 x10e3/uL (140-360); RED BLOOD COUNT 2.57 x10e6/uL (4.3-5.7)
[2019-11-02 05:23] LABS: MEAN CORPUSCULAR VOLUME 96.9 fL (81-99)
[2019-11-02 05:26] LABS: ALBUMIN 2.5 g/dL (3.5-5.0); ALBUMIN/GLOBULIN RATIO 1.2 (0.8-2.0); ANION GAP 10.8 mmol/L (8-16); CALCIUM 7.9 mg/dL (8.4-10.2); CREATININE, SERUM 2.38 mg/dL (0.72-1.25); POTASSIUM 4.8 mmol/L (3.5-5.1)
[2019-11-02] MEDS: SODIUM CHLORIDE 0.9% 1000ML 1,000 ML IV SCH ×2 (06:20→23:27)
[2019-11-02] MEDS: AZITHROMYCIN 500MG/NS 250 ML 250 ML IV SCH (07:57)
[2019-11-02] MEDS: GABAPENTIN 100 MG CAP PO SCH ×3 (08:12→21:01)
[2019-11-02] MEDS: DIGOXIN 0.125 MG TAB PO SCH (08:12)
[2019-11-02] MEDS: (Biotin 10,000 MCG) PO SCH (08:12)
[2019-11-02] MEDS: ALLOPURINOL 300 MG TAB PO SCH (08:12)
[2019-11-02] MEDS: CIPROFLOXACIN 500 MG TAB PO SCH ×2 (08:12→16:13)
[2019-11-02] MEDS: FOLIC ACID 1 MG TAB PO SCH (08:12)
[2019-11-02] MEDS: TAMSULOSIN HCL 0.4 MG CAP PO SCH (08:12)
[2019-11-02] MEDS: CEFEPIME 1GM/NS 0.9% 50 ML 50 ML IV SCH ×2 (09:00→20:57)
--- NOTE | 2019-11-02 10:24 | NUR ---
dr navarro removed catheter. tolerates well.
--- NOTE | 2019-11-02 11:04 | Progress Note ---
DATE: 11/02/2019 SUBJECTIVE: Three-way catheter was removed by Dr. Short today. The patient was weaned off the Levophed and feels better. PHYSICAL EXAMINATION: VITAL SIGNS: The blood pressure is 106/39 and the pulse is 58. The saturation is 96%. HEENT: Shows no facial swelling or erythema. CARDIAC: Reveals regular rate and rhythm with normal S1 and S2. LUNGS: Auscultation of lungs reveals clear breath sounds bilaterally. ABDOMEN: Soft and nontender. There is no rebound or guarding. EXTREMITIES: Shows no leg edema or calf tenderness. There is no cyanosis or clubbing. LABORATORY DATA: BUN to creatinine ratio is improved to 49/2.38 and the hemoglobin is 7.8. The white blood cell count is 13.1. IMPRESSION: 1. Anemia secondary to acute blood loss. 2. Acute kidney injury. 3. Transitional cell carcinoma of the bladder. 4. Paroxysmal atrial fibrillation. PLAN: 1. Out of bed as tolerated. 2. Repeat creatinine and CBC tomorrow. 3. Await final culture results. 4. Possible discharge home tomorrow. Homer Zapien MD [facility]/MODL /[id number]
--- NOTE | 2019-11-02 11:25 | NUR ---
pt voided moderate clot noted.
--- NOTE | 2019-11-02 13:10 | Progress Note ---
DATE: 11/02/2019 Cardiology Progress Note SUBJECTIVE: The patient is stable with no new complaints. He reports that he has had no further chest pain episodes and he is feeling a bit better. OBJECTIVE: VITAL SIGNS: Temperature is 98.2, heart rate 58, blood pressure 106/39, respirations 22, O2 saturation 96% on room air. GENERAL: No acute distress. Pleasant, alert, and oriented x3. HEENT: Normocephalic, atraumatic. Right IJ line is in place. CARDIAC: Bradycardic and regular with normal S1, S2. LUNGS: Clear to auscultation bilaterally. No wheeze. ABDOMEN: Soft, nontender. No rebound or guarding. EXTREMITIES: Trace lower extremity edema. No clubbing or cyanosis. SKIN: Dry and intact. No rashes. NEUROLOGIC: No focal defects. LABORATORY DATA: Hemoglobin is 7.8, white blood cell count is 13.8, platelet count is 143,000. Potassium is 4.8, creatinine is 2.38. CARDIOVASCULAR MEDICATIONS: Please refer to chart. ASSESSMENT: An 79-year-old man admitted for the followin. Hematuria. 2. Atypical chest pain. 3. Chronic anemia. 4. Transitional cell carcinoma of the bladder. 5. Coronary artery disease. 6. Paroxysmal atrial fibrillation. RECOMMENDATIONS: The patient remains hemodynamically stable after being weaned off Levophed. Recommend to continue conservative management from a cardiac standpoint. Continue to monitor hemoglobin and hematocrit and transfuse as needed. Echocardiogram pending. Continue current cardiovascular medications and supportive care. We will continue to follow the patient closely with you. Cross cover for Dr. Aman Valdes. MD ANALIA Navas/SANDY /[id number]
[2019-11-02] MEDS: NOREPINEPHRINE INJ 4MG/4ML 8 MG in DEXTROSE 5% 250ML 250 ML IV SCH (16:14)
[2019-11-02] MEDS: METOPROLOL TARTRATE 25 MG TAB PO SCH (20:57)
[2019-11-02] MEDS: ATORVASTATIN 10 MG TAB PO SCH (20:57)
[2019-11-02] MEDS: CHOLECALCIFEROL 1,000 UNIT TAB PO SCH (21:01)
--- NOTE | 2019-11-02 21:49 | NUR ---
79 YR OLD MALE RECEIVED VIA W/C FROM ICU.REPORT RECEIVED VIA PHONE FROM PAPERHANGER AND PAINTER. PT IS ALERT AND ORIENTED X4. TELE #27 ON.- AFIB. RT TL IJ INTACT. SITE HEALTHY. NS INFUSING AT 50 ML/HR. 20 G SL IN RT HAND.RESPIRATIONS ARE EVEN AND UNLABORED. DENIES PAIN. LBM YESTERDAY. FAMILY AT BEDSIDE. BED IN LOW POSITION. CALL LIGHT WITHIN REACH. BED ALARM ON. PT COOPERATIVE WITH CARE.PT VOID PER BATHROOM S/P TURP AND BLADDER CANCER- HAS LEAKAGE AT TIMES- WEARS PULL UP - HAS OWN PULL UPS.PT AMBULATE WITH ONE ASSIST. ORIENT FAMILY AND PT TO ROOM AND MS 1.
--- NOTE | 2019-11-02 22:00 | NUR ---
Report called to Jose DENISE on MS1.
--- NOTE | 2019-11-02 22:20 | NUR ---
Transferred per wheelchair to [facility]. Care to RN.
[2019-11-03 05:02] VITALS: BP 129/58
[2019-11-03 06:12] LABS: BASOPHILS % 0.3 % (0.0-1.0); EOSINOPHILS # (AUTO) 0.4 (0.0-0.4); EOSINOPHILS % 3.6 % (0.0-6.0); HEMOGLOBIN 7.3 g/dL (14.0-18.0); LYMPHOCYTES # (AUTO) 1.6 (1.0-3.2); LYMPHOCYTES % 13.8 % (18.0-39.1); MEAN CORPUSCULAR HEMOGLOBIN 30.4 pg (28-32); MEAN CORPUSCULAR HGB CONC 31.7 g/dL (31-35); MEAN CORPUSCULAR VOLUME 95.8 fL (81-99); MONOCYTES % 8.6 % (4.4-11.3); NEUTROPHILS # (AUTO) 8.3 (2.1-6.9); PLATELET COUNT 166 x10e3/uL (140-360); RED CELL DISTRIBUTION WIDTH 21.5 % (11.7-14.4)
[2019-11-03 06:30] LABS: ALBUMIN 2.5 g/dL (3.5-5.0); ALBUMIN/GLOBULIN RATIO 1.1 (0.8-2.0); ANION GAP 8.6 mmol/L (8-16); CALCIUM 7.7 mg/dL (8.4-10.2); CREATININE, SERUM 2.07 mg/dL (0.72-1.25); POTASSIUM 4.6 mmol/L (3.5-5.1)
[2019-11-03 08:31] VITALS: BP 120/61
[2019-11-03] MEDS: CEFEPIME 1GM/NS 0.9% 50 ML 50 ML IV SCH (08:39)
[2019-11-03] MEDS: FOLIC ACID 1 MG TAB PO SCH (08:41)
[2019-11-03] MEDS: CIPROFLOXACIN 500 MG TAB PO SCH (08:41)
[2019-11-03] MEDS: TAMSULOSIN HCL 0.4 MG CAP PO SCH (08:41)
[2019-11-03] MEDS: DIGOXIN 0.125 MG TAB PO SCH (08:42)
[2019-11-03] MEDS: (Biotin 10,000 MCG) PO SCH (08:42)
[2019-11-03] MEDS: GABAPENTIN 100 MG CAP PO SCH ×2 (08:42→15:45)
[2019-11-03] MEDS: ALLOPURINOL 300 MG TAB PO SCH (08:42)
[2019-11-03 10:00] VITALS: BP 120/61
--- NOTE | 2019-11-03 10:14 | Progress Note ---
DATE: 11/03/2019 Cardiology Consultation SUBJECTIVE: No complaints today. Denies chest pain or shortness of breath. OBJECTIVE: VITAL SIGNS: Temperature 99.1, heart rate 80, respiratory rate 18, blood pressure 120/61, O2 saturation 97% on room air. General: No acute distress, alert. NECK: No JVD. CHEST: Clear to auscultation. CARDIOVASCULAR: Regular rate and rhythm. Normal S1 and S2. No S3 or S4. Systolic ejection murmur 2/6 heard best in the left mid axillary line with 6th intercostal space, sternotomy scar. ABDOMEN: Soft. Bowel sounds positive. EXTREMITIES: No edema. Warm distal extremities. CARDIOVASCULAR MEDICATIONS: Reviewed. Digoxin 0.125 mg daily, ciprofloxacin, cefepime antibiotics, metoprolol tartrate 12.5 mg every 12 hours, atorvastatin 10 mg at bedtime. STUDIES: Reviewed. Hemoglobin 11.4, platelets 166. Hemoglobin 7.3. Creatinine trending down to 0.07, potassium 4.69. Cardiac biomarkers serially negative. Negative troponins. Telemetry reviewed. The patient in atrial fibrillation. ASSESSMENT: 1. An 79-year-old man presented to hospital with symptomatic anemia and hematuria, atypical chest pain, now resolved. 2. Transitional cell carcinoma of the bladder. 3. Coronary artery disease. 4. Paroxysmal atrial fibrillation. 5. Renal failure. RECOMMENDATIONS: 1. Discontinue digoxin given renal failure. 2. Continue rest of cardiovascular medications including beta-tamar and statin. 3. Currently not a candidate for anticoagulation. Can reassess this as outpatient with his outpatient digital advertising analyst upon discharge. MD GLORIA Baptiste/FREDOL /[id number]
[2019-11-03] MEDS: AZITHROMYCIN 500MG/NS 250 ML 250 ML IV SCH (10:30)
[2019-11-03] MEDS ORDERED: ONDANSETRON HCL 4 MG ORAL DISINTEGRATING TAB PO PRN (11:30)
--- NOTE | 2019-11-03 11:54 | Progress Note ---
DATE: 11/03/2019 SUBJECTIVE: The patient feels much better. He is urinating well. He has been ambulating. He has no fever or pain. PHYSICAL EXAMINATION: VITAL SIGNS: The patient is afebrile. The vital signs are stable. HEENT: Shows no facial swelling or erythema. CARDIAC: Reveals regular rate and rhythm with normal S1 and S2. LUNGS: Auscultation of lungs reveals rhonchorous breath sounds bilaterally. There is no wheezing. ABDOMEN: Soft and nontender. There is no rebound or guarding. EXTREMITIES: Shows no leg edema or calf tenderness. There is no cyanosis or clubbing. SKIN: Shows no rashes. IMPRESSION: 1. Anemia secondary to acute blood loss. 2. Acute kidney injury. 3. Transitional cell carcinoma of the bladder. 4. Paroxysmal atrial fibrillation. PLAN: 1. Plan for discharge home today. 2. Follow up with Dr. Short in 1 to 2 weeks. 3. Ambulation at home as tolerated. 4. Continue current cardiac regimen. Homer Zapien MD [facility]/MODL /[id number]
[2019-11-03 12:17] VITALS: BP 143/63
[2019-11-03 15:38] VITALS: BP 118/54
--- NOTE | 2019-11-09 13:28 | Operative Report ---
DATE OF PROCEDURE: 10/30/2019 SURGEON: Baljeet Short MD PREOPERATIVE DIAGNOSIS: Recurrent transitional cell carcinoma of the bladder with hematuria. POSTOPERATIVE DIAGNOSIS: Recurrent transitional cell carcinoma of the bladder with hematuria. OPERATIVE PROCEDURES PERFORMED: 1. Cystoscopy. 2. Transurethral resection and fulguration of large bladder tumors. ANESTHESIA: General anesthesia. ESTIMATED BLOOD LOSS: 100 mL. INDICATIONS: Mr. Paolo Aggarwal is an 79-year-old gentleman with a long history of TCC of the bladder with multiple recurrences. He has had change in temperatures in his last procedure and now presents for repeat TURBT and fulguration of bleeder. PROCEDURE IN DETAIL: The patient was brought into the operating room and placed in supine position. After initiation of general anesthesia, he was placed in dorsal lithotomy position and prepped and draped in usual sterile fashion. Cystourethroscopy was performed using 22-[place] cystoscope. The anterior and posterior urethra were noted to be normal. The prostate revealed evidence of prior resection with minimal residual tissue or any lauren obstruction. The bladder was entered without difficulty. Upon entrance into the bladder, there were multiple papillary TCCs noted studded throughout the bladder mucosa. The majority of tumor bulk was noted in the dome and near the bladder neck. These were noted to be actively oozing blood. The right ureteral orifice was noted to be somewhat scarred from prior resection. The left ureteral orifice largely clear efflux. The bladder was left full and the cystoscope and the sheath were removed. A 26-[place] Citizen resectoscope sheath was then placed in a retrograde fashion and Ferris resectoscope was used during the procedure. All of the visible tumors were either fulgurated in situ or resected down to the level of the muscle. There was no gross perforation of the muscle appreciated during the procedure. A large volume of tumor was ultimately removed and this was sent to Pathology for microscopic analysis. At the conclusion of the resection, there was no large visible tumors left in situ and no active bleeding noted despite bladder being full and empty and with irrigation off and flowing. The bladder was therefore left full, and the cystoscope and the sheath were removed. A 22-[place] 3-way Coude catheter was then placed in a retrograde fashion and the balloon inflated with approximately 30 mL of sterile water. The urinary efflux was noted to be blood tinged. The patient was returned to supine position and anesthesia was reversed. He was transferred to the bed and taken to the postanesthesia care unit in good condition. Of note, the needle and instrument counts were correct at the conclusion of the case. MD FABIEN Pedro/MODBib /[id number]
== END 2019-11-03 19:07 | disposition home or self-care (01) | DRG 668 ==
LOC: OR 05:53 → PACU V 10:57 → IMCU 12:51 → ICU 16:30 → OBSVTOIN 10-31 11:26 → MED/SURG 11-02 22:20
PROVIDERS: ADMIT Urology; ATTEND Urology
PROC: 02HV33Z Insertion of Infusion Device into Superior Vena Cava, Percutaneous Approach (ICD-10-PCS; 2019-10-30 10:00)
PROC: 0TBB8ZZ Excision of Bladder, Via Natural or Artificial Opening Endoscopic (ICD-10-PCS; principal; 2019-10-31)
DX: C67.9 Malignant neoplasm of bladder, unspecified (principal); N17.0 Acute kidney failure with tubular necrosis; R57.8 Other shock; D62 Acute posthemorrhagic anemia; E86.1 Hypovolemia; I48.0 Paroxysmal atrial fibrillation; I25.10 Atherosclerotic heart disease of native coronary artery without angina pectoris; Z95.1 Presence of aortocoronary bypass graft; Z90.5 Acquired absence of kidney; R07.89 Other chest pain; E87.5 Hyperkalemia; I12.9 Hypertensive chronic kidney disease with stage 1 through stage 4 chronic kidney disease, or unspecified chronic kidney disease; N18.3 Chronic kidney disease, stage 3 (moderate)
CPT/HCPCS: 36415; 51700; 71045; 71046; 80048; 80053; 82550; 82553; 83735; 84100; 84484; 85014; 85018; 85025; 86850; 86900; 86920; 87040; 88305; 93005; 93306; 97139; G0378; J0456; J0692; J0696; J1100; J2001; J2405; J3370; J7030; J7050; P9016